=== PATIENT | male | born 1955 | race Caucasian/White ===

== ENCOUNTER → 2016-06-30 | Day surgery (SDC) | payer OTHER ==
[2016-06-23 14:48] VITALS: BMI 25.0
[~2016-06-30] VITALS: Ht 175.3 cm; Wt 78.2 kg
[~2016-06-30] MED LIST: ALBU18002 INH; ATOR-26 PO; CARV6.252 PO; ENOX80IN SQ; HYDR-5688 PO; LIDOCAINE HCL 2% 2 ML VIAL (20MG/ML) ONE; MIDAZOLAM HCL 1 MG/ML 2ML VIAL ONE; NITR0.4S UT; PRLSR20 PO; PROPOFOL IV EMULSION 10 MG/ML 20 ML VIAL IV ONE; SODIUM CHLORIDE 0.9% 500ML 500 ML IV ONE; TRAZ50TA35 PO; WARF-246 PO
[2016-06-30 08:35] VITALS: Ht 175.3 cm; Wt 78.2 kg
--- NOTE | 2016-06-30 09:13 | Endo History and Physical ---
History & Physical Date of Service: June 30, 2016. Chief Complaint: HISTORY OF POLYPS Referring Physician: CALI POSEY History of Present Illness h/o polyps Past Medical History Angioplasty/Stent, Arthritis, High Cholesterol, Hypertension, [place] Past Surgical History Hx Cardiac Surgery: Yes (HEART CATH-2 STENTS PLACED) Hx Internal Defibrillator: Yes ([facility] 2007/BATTERY REPLACED 2013) Hx Pacemaker: Yes ([facility] 2007/BATTER REPLACED 2013) Hx Abdominal Surgery: No Hx of Implantable Prosthesis: No Hx Post-Op Nausea and Vomiting: No Hx Cancer Surgery: No Hx Thoracic Surgery: Yes Hx Orthopedic: Yes (LT KNEE ARTHROSCOPY) Hx Urinary Tract Surgery: No Family History None Social History Smoking Status: Former Smoker Hx Substance Use: No Hx Alcohol Use: No Allergies Coded Allergies: No Known Allergies (Verified , 06/30/16) Current Medications Reported Home Medications Medications Dose Route/Sig Max Daily Dose Days Date Category Dose Instructions Lovenox (Enoxaparin Sodium) 80 Mg/0.8 Ml Inj 80 Mg SQ Q12H 06/30/16 Reported Lovenox (Enoxaparin Sodium) 80 Mg/0.8 Ml Inj 80 Mg SQ Q12H 06/30/16 Reported Proair Respiclick (Albuterol Sulfate) 108 Mcg/Act Aer 2 Puff INH Q4H PRN 06/23/16 Reported [place] 5MG/325MG (Acetaminophen/Hydrocodone Bitart) Tab 1 Tab PO BID PRN 30 06/23/16 Reported PRN PAIN Lipitor (Atorvastatin Calcium) 80 Mg Tab 80 Mg PO QAM 06/23/16 Reported Trazodone (Trazodone HCl) 50 Mg Tab 50 Mg PO HS 11/12/15 Reported Prilosec (Omeprazole) 20 Mg Capcr 20 Mg PO QAM 08/28/14 Reported Warfarin Sodium 5 Mg Tab 15 Mg PO UD 10/30/13 Reported 15MG WEDNESDAY AND WEDNESDAY. 10 MG ALL OTHER DAYS OR DIRECTED BY [facility] CL[facility]IC. Coreg (Carvedilol) 6.25 Mg Tab 6.25 Mg PO BID 10/30/13 Reported Nitrostat (Nitroglycerin) 0.4 Mg Sub 0.4 Mg UT PRN 03/27/11 Reported Vital Signs Weight (Kilograms): 78.18 Height (Feet): 5 Height (Inches): 9 Date Time Temp Pulse Resp B/P Pulse Ox O2 Delivery O2 Flow Rate FiO2 06/30/16 08:53 36.5 68 18 137/84 97 Room Air Physical Exam General Appearance: no apparent distress Respiratory/Chest: Auscultation: breath sounds normal Cardiovascular: Heart Auscultation: RRR Abdomen: Inspection & Palpation: soft Assessment and Plan ho polyps - colonoscopy
--- NOTE | 2016-06-30 09:56 | Discharge Instructions ---
Endoscopy Patient Instructions Date / Procedure(s) Performed June 30, 2016. Colonoscopy Allergy Information Coded Allergies: No Known Allergies (Verified , 06/30/16) Discharge Date / Findings June 30, 2016. Diverticulosis, hemorrhoids Medication Instructions Stopped Medication(s): BRIDGED WITH LOVENOX 80 STOPPED COUMADIN 5MG 06-25-16 Provider Instructions Activity Restrictions - No exercising or heavy lifting for 24 hours. - Do not drink alcohol the day of the procedure. - Do not drive a car or operate machinery until the day after the procedure. - Do not make any important decisions or sign important papers in 24 hours after the procedure. Following Day: - Return to full activity which may include returning to work/school. Diet Start your diet with liquids and light foods (jello, soup, juice, toast). Then eat your usual diet if not nauseated. Treatment For Common After Affects For mild abdominal pain, bloating, or excessive gas: - Rest - Eat lightly - Lie on right side Follow-Up Information Follow-up with CALI POSEY as scheduled Anesthesia Information What You Should Know You have had a procedure that required some medicine to reduce anxiety and discomfort. This treatment is called moderate sedation. After receiving the treatment, you may be sleepy, but you will be able to breathe on your own. The effects of the treatment may last for several hours. Follow these instructions along with Activity/Diet recommendations noted above: * Do NOT do anything where dizziness or clumsiness would be dangerous. * Rest quietly at home today, then you can be up and about tomorrow. * Have a responsible person stay with you the rest of today. * You may have had an I.V. today. If so, you may take the dressing off later today. Recommendations Call your doctor if: * Trouble breathing * Continuous vomiting for more than 24 hours * Temperature above 101 degrees * Severe abdominal pain or bloating * Pain not relieved by pain medicine ordered * There is increased drainage or redness from any incision * A large amount of rectal bleeding greater than 2-3 tablespoons. (If you had a polyp/s removed or have hemorrhoids, a small amount of blood - from the rectum is to be expected.) * You have any unanswered questions or concerns. IN THE EVENT OF A SERIOUS EMERGENCY, GO TO THE NEAREST EMERGENCY ROOM Your discharge instructions were prepared by provider Koffi Overton. Patient Instructions Signature Page Jason Mcdonald Patient (or Guardian) Signature/Date: I have read and understand the instructions given to me by my caregivers. Caregiver/RN/Doctor Signature/Date: The above-named patient and/or guardian has received patient instructions on this date. + Original Patient Signature Page (only) stays with chart. Please make copy for patient.
--- NOTE | 2016-06-30 10:04 | Anesthesiology Progress Note ---
Anesthesia Post Op Note Date & Time June 30, 2016 at 10:04 Vital Signs Pain Intensity: 0 Vital Signs Past 12 Hours Date Time Temp Pulse Resp B/P Pulse Ox O2 Delivery O2 Flow Rate FiO2 06/30/16 10:00 61 18 119/76 98 Room Air 06/30/16 09:43 71 14 105/72 97 Room Air 06/30/16 08:53 36.5 68 18 137/84 97 Room Air Notes Mental Status: alert / awake / arousable, participated in evaluation Pt Amnestic to Procedure: Yes Nausea / Vomiting: adequately controlled Pain: adequately controlled Airway Patency, RR, SpO2: stable & adequate BP & HR: stable & adequate Hydration State: stable & adequate Anesthetic Complications: no major complications apparent
[2016-06-30 10:15] VITALS: BP 125/79; PULSE 58; O2SAT 98
--- NOTE | 2016-06-30 10:36 | GI REPORT ---
Procedure Date: 06/30/2016 9:15 AM Procedure: Colonoscopy Indications: High risk colon cancer surveillance: Personal history of colonic polyps Medicines: See the Anesthesia note for documentation of the administered medications Complications: No immediate complications. Estimated Blood Loss: Estimated blood loss: none. Procedure: Pre-Anesthesia Assessment: - ASA Grade Assessment: IV - A patient with severe systemic disease that is a constant threat to life. After I obtained informed consent, the scope was passed under direct vision. Throughout the procedure, the patient's blood pressure, pulse, and oxygen saturations were monitored continuously. The scope was introduced through the anus and advanced to the terminal ileum. The colonoscopy was performed without difficulty. The patient tolerated the procedure well. The quality of the bowel preparation was good. Findings: The perianal and digital rectal examinations were normal. Multiple small and large-mouthed diverticula were found in the sigmoid colon and in the descending colon. Hemorrhoids were found during retroflexion. The exam was otherwise without abnormality. Impression: - Diverticulosis in the sigmoid colon and in the descending colon. - Hemorrhoids. - The examination was otherwise normal. - No specimens collected. Recommendation: - Discharge patient to home. - Repeat colonoscopy in 5 years for surveillance. Koffi Parks M.D. Koffi Parks MD 06/30/2016 9:55:40 AM This report has been signed electronically. Note Initiated On: 06/30/2016 9:15 AM I attest to the content of the Intraoperative Record and orders documented therein, exceptions below
== END | disposition home or self-care (01) ==
LOC: C.GI 08:33
PROVIDERS: ATTEND Internal Medicine Gastroenterology
DX: Z12.11 Encounter for screening for malignant neoplasm of colon (principal); Z86.010 Personal history of colon polyps; K57.30 Diverticulosis of large intestine without perforation or abscess without bleeding; K64.9 Unspecified hemorrhoids; I10 Essential (primary) hypertension; E78.00 Pure hypercholesterolemia, unspecified; I25.2 Old myocardial infarction; Z98.890 Other specified postprocedural states; I48.91 Unspecified atrial fibrillation; M19.90 Unspecified osteoarthritis, unspecified site; Z87.891 Personal history of nicotine dependence; Z95.0 Presence of cardiac pacemaker; Z68.25 Body mass index [BMI] 25.0-25.9, adult; Z79.899 Other long term (current) drug therapy; Z79.01 Long term (current) use of anticoagulants

== ENCOUNTER → 2017-03-09 | Outpatient (CLI) | payer OTHER ==
[~2017-03-09] MED LIST changes: -LIDOCAINE HCL 2% 2 ML VIAL (20MG/ML) ONE; -MIDAZOLAM HCL 1 MG/ML 2ML VIAL ONE; -PROPOFOL IV EMULSION 10 MG/ML 20 ML VIAL IV ONE; -SODIUM CHLORIDE 0.9% 500ML 500 ML IV ONE
[2017-03-09 13:57] LABS: BLOOD UREA NITROGEN 16 mg/dl (7-18); CREATININE 1.07 mg/dl (0.60-1.40)
== END | disposition home or self-care (01) ==
LOC: C.LABBC 11:21
PROVIDERS: ATTEND Orthopaedic Surgery Orthopaedic Surgery of the Spine
DX: M75.101 Unspecified rotator cuff tear or rupture of right shoulder, not specified as traumatic (principal)

== ENCOUNTER 2017-03-26 11:26 | Day surgery (SDC) | payer OTHER ==
[2017-03-24 14:31] VITALS: BMI 25.0
--- NOTE | 2017-03-24 15:06 | PAT Medication Instructions ---
Service Date Mar 24, 2017. Current Home Medication List Albuterol Sulfate (Proair Respiclick), 2 PUFF INH Q4H PRN for Shortness of Breath Carvedilol (Coreg), 6.25 MG PO BID Hydrocodone/Acetaminophen 5MG/325MG ([place] 5MG/325MG), 1 TAB PO BID PRN for Pain Hydroxyzine Pamoate (Vistaril), 1 CAP PO TID PRN for prn Nitroglycerin (Nitrostat), 0.4 MG UT PRN Omeprazole (Prilosec), 20 MG PO BID Medication Instructions For Your Scheduled Surgery - Take the following medications the morning of surgery with a sip of water: Omeprazole (Prilosec), 20 MG PO BID Nitroglycerin (Nitrostat), 0.4 MG UT PRN (if needed) Albuterol Sulfate (Proair Respiclick), 2 PUFF INH Q4H PRN for Shortness of Breath (if needed) Carvedilol (Coreg), 6.25 MG PO BID Hydrocodone/Acetaminophen 5MG/325MG ([place] 5MG/325MG), 1 TAB PO BID PRN for Pain (okay to take up to 4 hours prior to surgery if needed) Hydroxyzine Pamoate (Vistaril), 1 CAP PO TID PRN for prn (if needed) - Take the following medications as scheduled the night before surgery: Omeprazole (Prilosec), 20 MG PO BID Nitroglycerin (Nitrostat), 0.4 MG UT PRN (if needed) Albuterol Sulfate (Proair Respiclick), 2 PUFF INH Q4H PRN for Shortness of Breath (if needed) Carvedilol (Coreg), 6.25 MG PO BID Hydrocodone/Acetaminophen 5MG/325MG ([place] 5MG/325MG), 1 TAB PO BID PRN for Pain (if needed) Hydroxyzine Pamoate (Vistaril), 1 CAP PO TID PRN for prn (if needed) If you have any questions please call us at [phone] or [phone] or [phone]
--- NOTE | 2017-03-24 15:24 | DIAGNOSTIC IMAGING REPORT ---
CHEST 2 VIEWS ROUTINE CLINICAL HISTORY: 61 years-old Male presenting with preoperative assessment. TECHNIQUE: PA and lateral views of the chest were obtained. COMPARISON: 04/18/2014. FINDINGS: Left subclavian implanted cardiac defibrillator with lead to the right ventricular apex. Atherosclerosis of aortic arch. Cardiac silhouette normal in size. Opacity in the region of the left ventricular apex may represent a prominent pericardial fat pad. No other focal opacity. No pleural effusion or pneumothorax. Degenerative changes of the thoracic spine. Upper abdomen normal. IMPRESSION: 1. No acute cardiopulmonary disease. Electronically signed by: Sergio Tucker M.D. 03/24/2017 3:23 PM Dictated Date/Time: 03/24/2017 3:22 PM
[2017-03-24 16:29] LABS: BASO % 0.9 %; BASO ABS # 0.06 K/uL (0-0.2); EOS % 3.2 %; EOS ABS # 0.21 K/uL (0-0.5); HEMATOCRIT 36.6 % (42-52); HEMOGLOBIN 11.8 g/dL (14.0-18.0); IG# 0.02 K/uL (0.00-0.02); LYMPH % 36.7 %; LYMPH ABS # 2.44 K/uL (1.2-3.4); MEAN CELL VOLUME 73.8 fL (80-100); MEAN CORPUSCULAR HEMOGLOBIN 23.8 pg (25-34); MEAN CORPUSCULAR HGB CONC 32.2 g/dl (32-36); MEAN PLATELET VOLUME 10.1 fL (7.4-10.4); MONO % 10.5 %; NEUT % 48.4 %; NEUT ABS # 3.21 K/uL (1.4-6.5); PLATELET COUNT 259 K/uL (130-400); RED CELL DISTRIBUTION WIDTH CV 15.9 % (11.5-14.5); RED CELL DISTRIBUTION WIDTH SD 42.5 fL (36.4-46.3); WHITE BLOOD COUNT 6.64 K/uL (4.8-10.8)
[2017-03-24 16:36] LABS: CREATININE 1.16 mg/dl (0.60-1.40)
[2017-03-24 16:37] LABS: CALCIUM 8.9 mg/dl (8.5-10.1)
--- NOTE | 2017-03-25 07:10 | HISTORY & PHYSICAL EXAMINATION ---
DATE OF ADMISSION: 03/26/2017 HISTORY AND PHYSICAL ADMISSION NOTE CHIEF COMPLAINT: Right shoulder pain. HISTORY OF PRESENT ILLNESS: Jason is a pleasant 61-year-old male who has been having a year long history of right shoulder pain. He does not recall any traumatic event. He has been followed by my partner who has done physical therapy as well as giving him injections in his shoulder. Unfortunately, he is still having a lot of shoulder pain. Due to the pacemaker, he underwent a CT arthrogram of his right shoulder and the test showed a medially subluxated biceps tendon with some tearing of the upper border of the subscapularis. After failing extensive conservative treatment, he has elected to proceed with a shoulder arthroscopy. PAST MEDICAL HISTORY: Significant for myocardial infarction, heart valve issues, heart palpitations, pacemaker placement, angioplasty, and acid reflux. PAST SURGICAL HISTORY: Significant for heart pacemaker placement, surgery to his throat and surgery to his knee. ALLERGIES: None. MEDICATIONS: Include Coreg 6.25 mg twice a day, [place] 5/325 as needed for pain, Nitrostat 0.4 mg as needed, hydroxyzine 25 mg every 6 hours as needed, Prilosec 20 mg twice a day, and ProAir as needed. ALLERGIES: None. SOCIAL HISTORY: Denies any tobacco, alcohol or IV drug use. FAMILY HISTORY: Denies. REVIEW OF SYSTEMS: Complains of right shoulder pain. All other pertinent review of systems is negative. PHYSICAL EXAMINATION: GENERAL: He is awake, alert and oriented x3. He is in no apparent distress. He is very pleasant. HEENT: Pupils equal, round and reactive to light. Extraocular motion intact. Oral mucosa is pink and moist. HEART: Regular rate per radial pulse. LUNGS: [place] symmetrically bilaterally with no audible breath sounds. ABDOMEN: Soft, nontender, nondistended. MUSCULOSKELETAL: On physical examination of the right shoulder, he has good motion about 150 degrees of forward elevation and 50 degrees of abduction. He has 5/5 motion and full can testing and external rotation. Negative belly press test. A positive bear hug test. He has a lot of tenderness to palpation over the biceps geoffrey mechanism. IMAGING DATA: A CT arthrogram of the right shoulder does show some medial subluxation of the long head of the biceps tendon and a little bit of tearing of the upper border of the subscapularis. IMPRESSION: Medially subluxated biceps tendon. PLAN: Will proceed with a right shoulder arthroscopy to include biceps tenodesis and possible upper border subscap repair. Postoperatively, he will be given some oral pain medications and discharged to home.
[~2017-03-26] VITALS: Ht 182.9 cm; Wt 86.0 kg
--- NOTE | 2017-03-26 11:11 | History & Physical Bridge Note ---
H&P Re-Evaluation Bridge Note: I have examined the patient, reviewed the History & Physical and in the interval since the performance of the History & Physical I have noted the following changes of clinical significance: No changes noted
[~2017-03-26 11:26] MED LIST changes: -ATOR-26 PO; +BUPIVACAINE 0.5 % 5 MG/1 ML PF 10ML VIAL ONE; +CEFAZOLIN 2000MG IV PUSH 15 ML IV SCH; +CLONIDINE HCL 100 MCG/ML SYRINGE ONE; -ENOX80IN SQ; +HYDR25CA PO; +LACTATED RINGER'S 1000ML 1,000 ML IV SCH; +LACTATED RINGER'S 1000ML IV SCH; +MEPIVACAINE HCL 1.5% 30 ML VIAL ONE; -TRAZ50TA35 PO; -WARF-246 PO
[2017-03-26 11:54] VITALS: BP 123/85; PULSE 66; TEMP 36.3; O2SAT 97; Ht 182.9 cm; Wt 86.0 kg
[2017-03-26] MEDS ORDERED: EpINEphrine HCL INJ 1 MG/ML 1ML SYRINGE ONE (12:06)
[2017-03-26] MEDS ORDERED: BUPIVACAINE/EPINEPHRINE 0.5% MPF 1:200,000 30 ML VIAL ONE (12:06)
[2017-03-26] MEDS ORDERED: MIDAZOLAM HCL 1 MG/ML 2ML VIAL ONE ×2 (12:19)
[2017-03-26] MEDS ORDERED: FENTANYL CITRATE INJ 50 MCG/1 ML 2 ML VIAL ONE (12:19)
[2017-03-26] MEDS ORDERED: HYDROmorphone INJ 1 MG/ML SYR IV PRN (15:30)
[2017-03-26] MEDS ORDERED: EpHEDrine SULFATE INJ 50 MG/ML AMP IV PRN (15:30)
[2017-03-26] MEDS ORDERED: ONDANSETRON INJ 2 MG/ML 2 ML VIAL IV PRN ×2 (15:30→16:45)
[2017-03-26] MEDS ORDERED: PROMETHAZINE HCL INJ 12.5 MG in SODIUM CHLORIDE 0.9% 50ML 50 ML IV PRN (15:30)
[2017-03-26] MEDS ORDERED: NALOXONE HCL 0.4 MG/1 ML VIAL/CARP IV PRN (15:30)
[2017-03-26] MEDS ORDERED: FLUMAZENIL 0.1 MG/1 ML 10 ML VIAL IV PRN (15:30)
[2017-03-26] MEDS ORDERED: ATROPINE SULFATE 0.1 MG/ML 5ML SYR IV PRN (15:30)
[2017-03-26] MEDS ORDERED: ROCURONIUM BROMIDE 10 MG/ML 5 ML VIAL IV ONE (15:53)
[2017-03-26] MEDS ORDERED: GLYCOPYRROLATE INJ 0.2 MG/ML VIAL ONE (15:53)
[2017-03-26] MEDS ORDERED: PROPOFOL IV EMULSION 10 MG/ML 20 ML VIAL IV ONE (15:53)
[2017-03-26] MEDS ORDERED: NEOSTIGMINE METHYLSULFATE 5 MG/5 ML SYR ONE (15:53)
--- NOTE | 2017-03-26 16:24 | [facility] Post Operative Brief Note ---
Immediate Operative Summary Operative Date Mar 26, 2017. Pre-Operative Diagnosis External impingement, biceps tendonopathy Post-Operative Diagnosis External impingement, biceps tendonopathy Procedure(s) Performed Right shoulder arthroscopy, acromioplasty, distal clavical resection, biceps tenodesis Surgeon Dr. Cardenas Home Planning Consultant Salesperson Surgeon(s) Juan Reyes PA-C Estimated Blood Loss 5cc Findings Consistent with Post-Op Diagnosis Specimens none Anesthesia Type General Regional Complication(s) none Disposition Disposition: Recovery Room / PACU
[2017-03-26] MEDS ORDERED: OXYC-57 PO (16:38)
[2017-03-26] MEDS ORDERED: KETO10TA PO (16:38)
[2017-03-26] MEDS ORDERED: SODIUM CHLORIDE 0.9% 1000ML 1,000 ML IV SCH (16:40)
--- NOTE | 2017-03-26 16:40 | Discharge Instructions ---
Discharge Instructions Date of Service Mar 26, 2017. Admission Reason for Admission: Right Shoulder Small Rotator Cuff Tear Discharge Discharge Diagnosis / Problem: SAME ABOVE Discharge Goals Goal(s): Decrease discomfort, Improve function Activity Recommendations Activity Limitations: as noted below Lifting Limitations: until after follow-up appointment Exercise/Sports Limitations: until after follow-up appointment Shower/Bathe: tomorrow . Instructions / Follow-Up Instructions / Follow-Up MEDICATIONS: * Resume previous medications unless instructed otherwise by your surgeon. * Always take pain medication on a full stomach or with food to avoid upset stomach. * Do not drink alcohol or drive while taking narcotics. * Ibuprofen or Tylenol may be taken if narcotic not needed. SPECIAL CARE INSTRUCTIONS: __ None _X_ Keep extremity elevated and iced x 48 hours; apply ice 20-30 minutes 8-10 times/day. May remove at night. _X_ Sling (WEAR NEEDED FOR COMFORT) __24 hrs/day __ Remove at night __ Shoulder Immobilizer __ 24 hrs/day __ Remove at night _X_ Dressing __ Maintain until seen in office, may shower with plastic over site _X_ Remove dressings in 24-48 hours and then may shower _X_ Cover incisions with band-aids after showering _X_ Do not remove steri-strips (THEY MAY FALL OFF ON THEIR OWN IN THE ARM- PIT) Call physician if chills or temperature rises above 102 degrees or pain unrelieved by prescribed pain medications at . . Current Hospital Diet Patient's current hospital diet: Discharge Diet Recommended Diet: Regular Diet Procedures Procedures Performed: Right shoulder arthroscopy, acromioplasty, distal clavical resection, biceps tenodesis Pending Studies Studies pending at discharge: no Work Instructions Return To Work: after follow-up Lifting Limitations: NO LIFTING MORE THAN 5 POUNDS WITH RIGHT ARM Medical Emergencies . Who to Call and When: Medical Emergencies: If at any time you feel your situation is an emergency, please call 911 immediately. . Non-Emergent Contact Non-Emergency issues call your: Primary Care Provider Call Non-Emergent contact if: you have a fever, temperature is above 101.5 . "Provider Documentation" section prepared by Blas Reyes. . VTE Core Measure Inpt VTE Proph given/why not?: Treatment not indicated
[2017-03-26] MEDS ORDERED: OXYCODONE/ACETAMINOPHEN 5-325 TAB PO PRN ×2 (16:45)
[2017-03-26 17:25] VITALS: BP 145/84; PULSE 52; TEMP 36.4; O2SAT 98
[2017-03-26 17:55] VITALS: BP 144/83; PULSE 57; TEMP 36.5; O2SAT 99
--- NOTE | 2017-03-26 18:17 | Anesthesiology Progress Note ---
Anesthesia Post Op Note Date & Time Mar 26, 2017 at 18:17 Vital Signs Pain Intensity: 5 Vital Signs Past 12 Hours Date Time Temp Pulse Resp B/P (MAP) Pulse Ox O2 Delivery O2 Flow Rate FiO2 03/26/17 17:55 36.5 57 18 144/83 99 Room Air 03/26/17 17:25 36.4 52 18 145/84 98 Room Air 03/26/17 17:17 55 24 03/26/17 17:17 55 24 98 03/26/17 17:16 167/90 03/26/17 17:12 62 25 97 03/26/17 17:12 61 25 03/26/17 17:11 141/87 03/26/17 17:07 36.1 62 20 141/87 (100) 98 Room Air Oxymask 03/26/17 17:07 60 24 03/26/17 17:07 59 24 97 03/26/17 17:06 137/83 03/26/17 17:02 64 26 03/26/17 17:02 64 26 03/26/17 17:00 162/99 03/26/17 16:57 61 23 03/26/17 16:57 61 23 100 03/26/17 16:56 63 20 03/26/17 16:56 65 20 156/100 100 03/26/17 16:51 68 23 03/26/17 16:51 68 23 150/99 100 03/26/17 16:46 68 24 100 03/26/17 16:46 68 24 03/26/17 16:45 147/89 03/26/17 16:42 147/90 03/26/17 16:41 36.0 71 18 147/90 (103) 100 Oxymask 10 03/26/17 16:41 71 03/26/17 16:41 71 100 03/26/17 15:10 56 16 126/78 (94) 100 Oxymask 10 03/26/17 15:00 55 18 114/75 (88) 100 Oxymask 10 03/26/17 14:50 54 18 119/71 (87) 100 Oxymask 10 03/26/17 14:40 56 18 117/72 (87) 100 Oxymask 10 03/26/17 14:30 59 18 116/76 (89) 100 Oxymask 10 03/26/17 14:20 58 18 117/76 (90) 99 Oxymask 10 03/26/17 14:10 58 18 111/79 (90) 99 Oxymask 10 03/26/17 14:01 60 18 114/73 (87) 99 03/26/17 13:50 58 18 114/73 (87) 99 03/26/17 13:39 59 18 111/74 (86) 99 Oxymask 10 03/26/17 11:54 36.3 66 20 123/85 (98) 97 Room Air Notes Mental Status: alert / awake / arousable, participated in evaluation Pt Amnestic to Procedure: Yes Nausea / Vomiting: adequately controlled Pain: adequately controlled Airway Patency, RR, SpO2: stable & adequate BP & HR: stable & adequate Hydration State: stable & adequate Anesthetic Complications: no major complications apparent
--- NOTE | 2017-03-26 18:47 | OPERATIVE REPORT ---
DATE OF OPERATION: 03/26/2017 PREOPERATIVE DIAGNOSIS: Possibly medially subluxated biceps tendon with a small upper border subscapularis tear. POSTOPERATIVE DIAGNOSES: Biceps tendinopathy with labral fraying and external impingement and acromioclavicular joint arthritis. PROCEDURE: Right shoulder diagnostic arthroscopy with limited debridement, distal clavicle resection, acromioplasty and open subpectoral biceps tenodesis. SURGEON: Dr. Les Cardenas. BATCH WEIGHER: Juan Reyes PA-C, whose assistance was necessary for positioning the arm and helping with instrumentation. ANESTHESIA: General with a right interscalene nerve block. COMPLICATIONS: None. CONDITION: Stable to PACU. INDICATIONS: Jason is a pleasant 62-year-old male who has been having a 1-year history of right shoulder pain. CT arthrogram and clinical examination were diagnostic for possible upper border of the subscap tear and biceps geoffrey pain. After failing conservative treatment, he elected to undergo arthroscopy. DESCRIPTION OF PROCEDURE: On 03/26/2017, he arrived at [facility] for the above procedure. He was seen in the preoperative holding area and the operative extremity was identified and signed. He was given a preoperative antibiotic and a right interscalene nerve block. He was taken back to the operating room, laid on the table in supine position and put under general anesthesia. He was then put into the beachchair position and the right shoulder was prepped and draped in sterile fashion. Time-out was done and the patient and operative extremity was properly identified. A scope was introduced in the posterior portal. Diagnostic arthroscopy showed no cartilage damage to the humeral head or the glenoid. There was significant fraying of the superior and anterior inferior labrum. There was also a little bit of chondrocalcinosis. The fraying was incarcerated into the joint. There was a superior labral tear. The biceps tendon went through a slightly enlarged biceps geoffrey mechanism and there was redness on the dorsal aspect of the biceps tendon. The subscapularis was intact. The supraspinatus, infraspinatus, teres minor, and subscapularis were all checked and intact. An anterior portal was made. A shaver was used to do a limited debridement of the intraarticular structures and the biceps tendon was arthroscopically tenotomized. The scope was then put into the subacromial space. A lateral portal was made. A shaver was used to do a complete subacromial and subdeltoid bursectomy. An ablator was used to tease the coracoacromial ligament off the undersurface of the acromion and a 5-0 maribell was used to complete an acromioplasty of a Bigliani type 3 acromion. A shaver was used to remove any excess debris and the bursal side of the rotator cuff was examined extensively without evidence of tear. Attention was then paid to the distal clavicle. I removed the meniscal tissue from the distal clavicle. There was significant arthritis. I decided to do a distal clavicle resection. Through an anterior portal, a shaver and ablator were used to skeletonize the distal clavicle, a 5-0 maribell was then used to resect the distal 5 mm from the clavicle. Complete resection was checked under direct visualization. Arthroscopic instruments were removed from the shoulder and attention was turned to an open biceps tenodesis. A small incision was made over the inferior border of the pec major. Dissection was taken down through the fascia and the long head of the biceps tendon was delivered out of the wound. The tendon was then whipstitched at the anticipated level of tenodesis and the remainder of the tendon was discarded. A 6 mm hole was drilled in the bicipital groove and the biceps tendon was tenodesed with an Arthrex biceps button that was passed through the posterior cortex in a tension slide technique to deliver the tendon into the 6 mm hole. This gave good fixation. The wound was then irrigated and closed with 3-0 Vicryl and running 3-0 Monocryl. Steri-strips were placed. Portal sites were closed with 3-0 nylon. He was then placed in a soft dressing and a regular arm sling. He was then extubated, transferred to a [facility] and taken to the postanesthesia care unit in stable condition. He tolerated the procedure well. I attest to the content of the Intraoperative Record and any orders documented therein. Any exception s are noted below.
== END 2017-03-26 17:55 | disposition home or self-care (01) ==
LOC: C.ACU 11:26
PROVIDERS: ATTEND Orthopaedic Surgery
DX: M75.21 Bicipital tendinitis, right shoulder (principal); M75.41 Impingement syndrome of right shoulder; M19.011 Primary osteoarthritis, right shoulder; I10 Essential (primary) hypertension; I25.2 Old myocardial infarction; Z95.0 Presence of cardiac pacemaker; Z98.890 Other specified postprocedural states; I25.10 Atherosclerotic heart disease of native coronary artery without angina pectoris; Z79.82 Long term (current) use of aspirin

== ENCOUNTER 2022-11-08 07:00 | Observation (INO) ==
--- NOTE | 2022-11-08 07:20 | Emergency Department Note ---
Impression & Plan Ventricular tachycardia, Diaphoresis ED Provider Note NAME: JANE RUIZ AGE: 67 SEX: M : 1955 ARRIVES VIA: Walk-In INFORMANT: Patient ED PROVIDER(S): Jose Alberto Salmeron DO CHIEF COMPLAINT: Sweaty and ICD shock HPI: Patient is a 67-year-old male with a past medical history of an MN, ICD placement, previous shock, ischemic cardiomyopathy who presents to the ER following waking up this morning and feeling very sweaty and lightheaded. Shortly after this he felt like he was shocked. He currently denies any chest pain or shortness of breath. No belly pain. No nausea, vomiting, or diarrhea. He notes the swelling has stopped. No dysuria, urgency, or frequency. No other exacerbating or remitting factors. ADDITIONAL HISTORY OBTAINED: Per HPI Chronic Medical/Social Conditions Affecting Care: Per HPI PAST MEDICAL HISTORY:See Below PAST SURGICAL HISTORY:See Below FAMILY HISTORY:See Below SOCIAL HISTORY:See Below HOME MEDICATIONS:See Below ALLERGIES:See Below VITALS:See Below PHYSICAL EXAMINATION: GENERAL: Sitting up in bed, alert, well appearing, well nourished, no distress, non-toxic EYE EXAM: normal conjunctiva. OROPHARYNX:mucous membranes are moist LUNGS: Clear to auscultation. Normal chest wall mechanics HEART: no murmurs, S1 normal and S2 normal ABDOMEN: abdomen soft, non-tender, normo-active bowel sounds, no masses, no re bound or guarding. BACK: Back is symmetrical on inspection and there is no deformity, no midline te nderness, no CVA tenderness. SKIN: no rashes and no bruising UPPER EXTREMITIES: upper extremities are grossly normal. LOWER EXTREMITIES: No pitting edema. NEURO EXAM: Normal sensorium, cranial nerves II-XII grossly intact, normal speech, no gross weakness of arms, no gross weakness of legs. MEDICAL DECISION MAKING: Patient is a 67-year-old male who presents ER for above-stated complaint. IV was established blood work was obtained. External records reviewed. Labs show no significant leukocytosis or anemia. BMP with a slightly elevated chloride. LFTs bilirubin and lipase is unremarkable. Troponin was negative. Chest x-ray was clean. ICD was interrogated and showed V. tach which was initially paced which was unsuccessful and eventually was shocked at 25 J today at 6 in the morning. Discussed the case with the patient as well as Dr. Bolaños the patient was admitted to the [facility] for further evaluation management treatment. External Records Reviewed: External records reviewed with osteoarthritis of the knees per Ortho Consults/Care Managements Discussions: Per [facility] Triage Nursing notes reviewed. Limited review of prior medical records performed Vital Signs: reviewed and remarkable for no significant abnormalities Differential diagnosis: Cardiac ischemia, aortic dissection, pulmonary embolism, pneumothorax, pneumoni a, pericarditis, myocarditis, esophageal rupture, GERD, cholecystitis, pancreatitis, musculoskeletal, as well as other pathologies. ER treatment provided: See below Diagnostics interpreted by me include EKG and cardiac monitoring as listed below: -Cardiac Monitoring: An order was placed for continuous cardiac monitoring. The monitor shows a rate of 90 with sinus rhythm. -ECG: Sinus rhythm rate of 93 PVCs QTc 455 T wave inversions in the inferior leads -Laboratory studies:Interpreted by me as stated above in MDM and shown below. Imaging studies: Xrays: As interpreted by me: Portable AP upright 1 view of the chest shows no focal infiltrate CTs show: none Procedures:none Critical Care: None Past Med/Surg History Medical History Acute cerebrovascular accident (CVA) Anemia Arteriosclerotic cardiovascular disease Atrial fibrillation COVID-19 Exertional shortness of breath GERD (gastroesophageal reflux disease) Hyperlipidemia Hypertension ICD (implantable cardioverter-defibrillator) in place Ischemic cardiomyopathy Myocardial Infarction Stroke Thrombus in heart chamber Surgical History H/O hemorrhoidectomy History of cardiac cath History of colonoscopy History of esophagogastroduodenoscopy (EGD) History of heart artery stent History of repair of rotator cuff History of tonsillectomy History of tooth extraction Family History Father Family history of diabetes mellitus Myocardial infarction Mother Myocardial infarction Brother Myocardial infarction Denies family history of Ovarian cancer Prostate cancer Breast cancer Colorectal cancer Social History Smoking Status: Former smoker Tobacco Type: Cigarettes and Smokeless Tobacco (Dip or Chew) Age Started Using Tobacco: 18; Age Quit Using Tobacco: 47; packs per day: 1; Second Hand Exposure: No; Do You Dip or Chew Tobacco: Yes; Hx Alcohol Use: No Hx Substance Use: No Preferred Language: Belgian Communication Ability: Effective Visual Impairment: No Limitations Hearing Ability: Normal Courtesy Driver Required: No Beliefs That Will Affect Care: None marital status: Single Current Living Situation: Alone current occupational status: retired current occupation: used to work in construction Feels Safe at Home: Yes Childhood Exposure to Second-Hand Smoke: Yes Diet: regular Dental Care, Regularly: No Physical Activity Frequency: Daily Seatbelt Use: always Sunscreen Use: Yes Assistive Devices: Cane and Glasses Allergies Allergies Allergy/AdvReac Type Severity Reaction Status Date / Time cefdinir AdvReac Severe Vomiting Verified 09/17/22 13:38 Home Meds Home Medications Medication Instructions Recorded Confirmed atorvastatin 80 mg tablet 80 mg PO DAILY 05/21/21 11/08/22 clopidogrel 75 mg tablet 75 mg PO DAILY 05/21/21 11/08/22 Previous Rx's Medication Instructions Recorded sennosides 8.6 mg tablet (Senokot) 8.6 mg PO HS #30 tabs 08/09/19 ondansetron 4 mg disintegrating 8 mg PO Q8H PRN nausea and 06/03/20 tablet vomiting #40 tabs nitroglycerin 0.4 mg sublingual See Rx Instructions .Route 01/22/21 tablet .COMPLEX #75 tabs diclofenac sodium 1 % topical gel 2 g topical QID PRN pain, moderate 06/04/21 #100 grams isosorbide mononitrate 30 mg 30 mg PO DAILY #90 tabs 06/05/21 tablet,extended release 24 hr albuterol sulfate 90 mcg/actuation 2 puff inhalation 6XD PRN Wheezing 11/11/21 aerosol inhaler (ProAir HFA) #6.7 grams apixaban 5 mg tablet (Eliquis) 5 mg PO BID #180 tabs 11/11/21 omeprazole 20 mg capsule,delayed 20 mg PO BID #180 caps 05/13/22 release carvedilol 25 mg tablet 25 mg PO BID #180 tabs 07/29/22 hydrocodone 5 mg-acetaminophen 325 1 - 1.5 tab PO Q6H PRN pain #90 10/30/22 mg tablet tabs Results & Data (ED) Vital Signs Vital Signs - 24 hr 11/08/22 07:02 11/08/22 08:17 11/08/22 08:36 Temperature 36.3 C L Temperature Source Temporal Artery Scan Pulse Rate 93 H 88 Pulse Rate [Apical] 65 Respiratory Rate 18 18 Respiratory Effort / Characteristics Non-Labored Respiratory Depth Normal Respiratory Pattern Regular Blood Pressure 151/101 H Blood Pressure [Left Arm] 142/101 H Blood Pressure Mean 117 Blood Pressure Mean [Left Arm] 114 Blood Pressure Position [Left Arm] Pulse Oximetry 96 97 Oxygen Delivery Method Room Air Room Air Sepsis Recent Fever Within 48 Hours No Sepsis New/Unexplained Change in Mental Status N/A Sepsis Action Taken by Nursing No Action Required 11/08/22 10:00 11/08/22 11:00 11/08/22 12:17 Temperature Temperature Source Pulse Rate 75 83 Pulse Rate [Apical] 79 Respiratory Rate 18 22 Respiratory Effort / Characteristics Respiratory Depth Respiratory Pattern Blood Pressure Blood Pressure [Left Arm] 137/96 Blood Pressure Mean Blood Pressure Mean [Left Arm] 109 Blood Pressure Position [Left Arm] Pulse Oximetry 97 97 Oxygen Delivery Method Room Air Room Air Sepsis Recent Fever Within 48 Hours Sepsis New/Unexplained Change in Mental Status Sepsis Action Taken by Nursing 11/08/22 12:00 Temperature Temperature Source Pulse Rate Pulse Rate [Apical] 76 Respiratory Rate 22 Respiratory Effort / Characteristics Respiratory Depth Respiratory Pattern Blood Pressure Blood Pressure [Left Arm] 159/96 H Blood Pressure Mean Blood Pressure Mean [Left Arm] 117 Blood Pressure Position [Left Arm] Sitting Pulse Oximetry 97 Oxygen Delivery Method Room Air Sepsis Recent Fever Within 48 Hours Sepsis New/Unexplained Change in Mental Status Sepsis Action Taken by Nursing Laboratory Data 11/08/22 07:35 11/08/22 07:35 Lab Results 11/08/22 11/08/22 11/08/22 Range/Units 07:35 07:35 09:36 WBC 6.69 (4.8-10.8) K/ul RBC 5.52 (4.70-6.10) M/uL Hgb 14.9 (14.0-18.0) g/dl Hct 44.1 (42.0-52.0) % MCV 79.9 L (80.0-100.0) fL MCH 27.0 (25.0-34.0) pg MCHC 33.8 (32.0-36.0) g/dL RDW Std Deviation 44.7 (36.4-46.3) fL RDW Coeff of Em 15.5 H (11.5-14.5) % Plt Count 241 (130-400) K/uL MPV 10.0 (9.4-12.4) fL Immature Gran % (Auto) 0.6 % Neut % (Auto) 47.1 % Lymph % (Auto) 37.1 % [place] % (Auto) 11.2 % Eos % (Auto) 3.0 % Baso % (Auto) 1.0 % Neut # (Auto) 3.15 (1.40-6.50) K/uL Lymph # (Auto) 2.48 (1.20-3.40) K/uL [place] # (Auto) 0.75 H (0.11-0.59) K/uL Eos # (Auto) 0.20 (0.00-0.50) K/uL Baso # (Auto) 0.07 (0.00-0.20) K/uL Immature Gran # (Auto) 0.04 (0.01-0.20) K/uL Sodium 142 (136-145) mmol/L Potassium 3.6 (3.5-5.1) mmol/L Chloride 108 H (98-107) mmol/L Carbon Dioxide 27 (21-32) mmol/L Anion Gap 7 (3-11) BUN 11 (6-23) mg/dl Creatinine 1.04 (0.6-1.4) mg/dl Est Cr Clr Drug Dosing 68.0 ml/min Est GFR ( Amer) 85.1 ml/min Est GFR (Non-Af Amer) 73.4 ml/min BUN/Creatinine Ratio 10.6 (10-20) Glucose 99 (70-99(Fasting)) mg/dl Calcium 8.9 (8.6-10.3) mg/dl Total Bilirubin 0.4 (0.2-1.0) mg/dl AST 14 (13-39) U/L ALT 12 (7-52) U/L Alkaline Phosphatase 58 (34-104) U/L Troponin I High Sens 13.1 19.8 D (0-20) pg/ml Total Protein 7.0 (6.0-8.3) gm/dl Albumin 4.1 (3.4-5.0) gm/dl Globulin 2.9 (2.5-4.0) gm/dl Albumin/Globulin Ratio 1.4 (0.9-2) Lipase 46 (11-82) U/L Imaging Data Radiologist's Impression: Chest X-Ray 11/08/22 07:10 XR chest 1V portable CLINICAL HISTORY: Chest pain, nonspecific COMPARISON STUDY: Chest radiograph May 25, 2020. FINDINGS: Left subclavian pacer/AICD remains in place. There is no pneumothorax or pleural effusion. Blunting of the left costophrenic angle is likely due to epicardial fat pad. Cardiomediastinal silhouette is stable. There is no evidence for pulmonary edema. No consolidation to suggest pneumonia. IMPRESSION: No acute cardiopulmonary findings. No significant change in appearance of the chest. ACT 112: Negative or not required by law. Electronically signed by: Jose Alberto Agrawal M.D. 11/08/2022 7:29 AM Discharge Plan Visit Data Chief Complaint: Cardiac Assessment Stated Complaint: PACE MAKER SHOCKED HIM ED Provider: Jose Alberto Salmeron Discharge Problem: Ventricular tachycardia, Diaphoresis Forms Stand Alone Forms: [facility] Prescriptions Prescriptions: No Action ondansetron 4 mg tablet,disintegrating 8 mg PO Q8H PRN (Reason: nausea and vomiting) Qty: 40 0RF nitroglycerin 0.4 mg tablet, sublingual See Rx Instructions .ROUTE .COMPLEX Qty: 75 1RF Dose Instruction: PLACE 1 TABLET UNDER TONGUE EVERY 5 MINS, UP TO 3 DOSES NEEDED FOR CHEST PAIN Rx Instructions: PLACE 1 TABLET UNDER TONGUE EVERY 5 MINS, UP TO 3 DOSES NEEDED FOR CHEST PAIN carvedilol 25 mg tablet 25 mg PO BID Qty: 180 3RF hydrocodone-acetaminophen 5-325 mg tablet 1 - 1.5 tab PO Q6H PRN (Reason: pain) Qty: 90 0RF isosorbide mononitrate 30 mg tablet extended release 24 hr 30 mg PO DAILY Qty: 90 3RF omeprazole 20 mg capsule,delayed release(DR/EC) 20 mg PO BID Qty: 180 3RF diclofenac sodium 1 % gel 2 g topical QID PRN (Reason: pain, moderate) Qty: 100 2RF albuterol sulfate [ProAir HFA] 90 mcg/actuation HFA aerosol inhaler 2 puff INHALATION 6XD PRN (Reason: Wheezing) Qty: 6.7 5RF Eliquis 5 mg tablet 5 mg PO BID Qty: 180 3RF sennosides [Senokot] 8.6 mg tablet 8.6 mg PO HS Qty: 30 0RF atorvastatin 80 mg Tablet 80 mg PO DAILY clopidogrel 75 mg Tablet 75 mg PO DAILY Referrals Referrals: Clarice Dorsey MD [Primary Care Provider] -
--- NOTE | 2022-11-08 07:30 | XRay Report ---
XR chest 1V portable CLINICAL HISTORY: Chest pain, nonspecific COMPARISON STUDY: Chest radiograph May 25, 2020. FINDINGS: Left subclavian pacer/AICD remains in place. There is no pneumothorax or pleural effusion. Blunting of the left costophrenic angle is likely due to epicardial fat pad. Cardiomediastinal silhou ette is stable. There is no evidence for pulmonary edema. No consolidation to suggest pneumonia. IMPRESSION: No acute cardiopulmonary findings. No significant change in appearance of the chest. ACT 112: Negative or not required by law. Electronically signed by: Jose Alberto Agrawal M.D. 11/08/2022 7:29 AM
[2022-11-08 07:55] LABS: Basophils # (auto) 0.07 K/uL (0.00-0.20); Hematocrit (blood only) 44.1 % (42.0-52.0); Hemoglobin 14.9 g/dl (14.0-18.0); Immature Granulocytes # (auto) 0.04 K/uL (0.01-0.20); Immature Granulocytes % (auto) 0.6 %; Lymphocytes # (auto) 2.48 K/uL (1.20-3.40); Lymphocytes % (auto) 37.1 %; Mean Corpuscular Hgb Conc 33.8 g/dL (32.0-36.0); Mean Corpuscular Volume 79.9 fL (80.0-100.0); Monocytes # (auto) 0.75 K/uL (0.11-0.59); Monocytes % (auto) 11.2 %; Neutrophils # (auto) 3.15 K/uL (1.40-6.50); Neutrophils % (auto) 47.1 %; Platelet Count 241 K/uL (130-400); RDW Coefficient of Variation 15.5 % (11.5-14.5); RDW Standard Deviation 44.7 fL (36.4-46.3); Red Blood Count 5.52 M/uL (4.70-6.10); White Blood Count 6.69 K/ul (4.8-10.8)
[2022-11-08 08:08] LABS: Albumin Globulin Ratio 1.4 (0.9-2); Albumin Level 4.1 gm/dl (3.4-5.0); BUN Creatinine Ratio 10.6 (10-20); Bilirubin,Total 0.4 mg/dl (0.2-1.0); Calcium 8.9 mg/dl (8.6-10.3); Est GFR (African American) 85.1 ml/min; Est GFR (Non-African American) 73.4 ml/min; Globulin 2.9 gm/dl (2.5-4.0); Potassium 3.6 mmol/L (3.5-5.1)
[2022-11-08 08:33] LABS: Troponin I High Sensitivity 13.1 pg/ml (0-20)
--- NOTE | 2022-11-08 09:44 | Electrocardiogram Report ---
Test Reason : Blood Pressure : / mmHG Vent. Rate : 093 BPM Atrial Rate : 093 BPM P-R Int : 186 ms QRS Dur : 098 ms QT Int : 366 ms P-R-T Axes : 049 -37 040 degrees QTc Int : 455 ms Sinus rhythm with occasional Premature ventricular complexes Left axis deviation Incomplete right bundle branch block Left ventricular hypertrophy with repolarization abnormality Old Anteroseptal infarct (cited on or before 27-MAR-2011) Abnormal ECG When compared with ECG of 25-MAY-2020 11:59, Premature ventricular complexes are now Present Confirmed by Lavon Covington ([id number]) on 11/08/2022 9:44:33 AM Referred By: REFERRED SELF Confirmed By:Lavon Covington
--- NOTE | 2022-11-08 13:09 | XCELERA ---
[id number]
[2022-11-08] MEDS ORDERED: HYDROCODONE/ACETAMOPHEN 5/325MG TAB PO PRN (14:39)
[2022-11-08] MEDS ORDERED: ONDANSETRON INJ 2 MG/ML 2 ML VIAL IV PRN (14:39)
[2022-11-08] MEDS ORDERED: MAGNESIUM HYDROXIDE SUSP 30 ML UDC PO PRN (14:39)
[2022-11-08] MEDS ORDERED: ALBUTEROL HFA 8 GM INHALER INH PRN (14:39)
[2022-11-08] MEDS ORDERED: ONDANSETRON 8MG OD TAB PO PRN (14:39)
[2022-11-08] MEDS ORDERED: DICLOFENAC SOD 1% GEL 100 GM TUBE EXT PRN (14:39)
[2022-11-08] MEDS ORDERED: POLYETHYLENE (MIRALAX) 17 GM PACK PO PRN (14:39)
[2022-11-08] MEDS ORDERED: ACETAMINOPHEN 325 MG TAB PO PRN (14:39)
[2022-11-08] MEDS ORDERED: NITROGLYCERIN SL 0.4 MG/TAB TAB SL PRN (14:39)
[2022-11-08] MEDS ORDERED: ALUMINUM/MAGNESIUM SUSP 30 ML UDC PO PRN (14:39)
--- NOTE | 2022-11-08 15:29 | Cardiology Consultation ---
Date of Consultation November 08, 2022 Assessment & Plan (1) Ventricular tachycardia: (2) Ischemic cardiomyopathy: (3) H/O acute myocardial infarction of anterior wall: Plan 67-year-old man with ischemic cardiomyopathy and implantable defibrillator who experienced a shock earlier today without significant prodrome or sequelae. Echocardiogram did show a mild decline in LV systolic function, but no no wall motion abnormalities and initial troponins are negative, weighing against this being an ischemic event. Also, his recent level of physical activity has been high and symptom-free and he feels well currently post shock. Since he did have ventricular tachycardia July 2022 as well (treated with antitachycardia pacing) and his systolic function seems to be declining, will initiate antiarrhythmic therapy with amiodarone 200 mg 3 times daily (loading dose, can be tapered to twice daily in 2 weeks). Perhaps the amiodarone will have an added benefit of maintaining sinus rhythm. His BP is variable but at times hypertensive, would recommend discontinuing carvedilol for now and initiating Entresto. If BP remains elevated, could gradually add carvedilol back later as needed. Since he is on high-dose proton pump inhibitor and this could impair magnesium absorption long-term, would check magnesium level. If this is markedly diminished, could add magnesium supplement and may not need amiodarone longer- term. Patient follows with Dr. Bryson routinely, please arrange cardiology follow-up with him upon discharge. History of Present Illness Reason for Consultation: vtach, ICD firing Requesting Physician: Jose Alberto Salcido DO Attending Physician: Jose Alberto Salcido DO History of Present Illness 67-year-old man withhypertension, paroxysmal atrial fibrillation (apixaban/c arvedilol), ischemic cardiomyopathy (EF varying between 25% and 35%), coronary artery disease (AMI, LAD stents x2, May 2006; 50% in stent stenosis 2021), single-chamber ICD ([facility], 2006, 2013) who is admitted today (11/08/2022) after his defibrillator fired. He has had prior defibrillator discharges which occurred early after ICD implantation in 2006, but had not had any for many years. Of note, a telemetry remote report from 08/04/2022 notes that he had ventricular tachycardia which required antitachycardia pacing, he does not recall any specific symptoms around this time. Today, he awoke with diaphoresis but no chest pain or dyspnea, he reclined for short while and then got up to get a coffee, as he was turning on the tap water he was abruptly shocked by his device. At recent baseline, he has felt well and has been able to bicycle many miles and do moderate physical labor without chest pain, dyspnea, palpitations or any other complaints. Aside from his diaphoresis, he had no prodromal symptoms and he has had no chest pain, dyspnea, or other complaints since his ICD shock. At the time of my evaluation, he was comfortable and had no somatic complaints. Allergies Allergy/AdvReac Type Severity Reaction Status Date / Time cefdinir AdvReac Severe Vomiting Verified 09/17/22 13:38 Home Medications Medication Instructions Recorded Confirmed Type sennosides 8.6 mg tablet (Senokot) 8.6 mg PO HS #30 tabs 08/09/19 11/08/22 Rx ondansetron 4 mg disintegrating 8 mg PO Q8H PRN nausea and 06/03/20 11/08/22 Rx tablet vomiting #40 tabs nitroglycerin 0.4 mg sublingual See Rx Instructions .Route 01/22/21 11/08/22 Rx tablet .COMPLEX #75 tabs atorvastatin 80 mg tablet 80 mg PO DAILY 05/21/21 11/08/22 History clopidogrel 75 mg tablet 75 mg PO DAILY 05/21/21 11/08/22 History diclofenac sodium 1 % topical gel 2 g topical QID PRN pain, moderate 06/04/21 11/08/22 Rx #100 grams isosorbide mononitrate 30 mg 30 mg PO DAILY #90 tabs 06/05/21 11/08/22 Rx tablet,extended release 24 hr albuterol sulfate 90 mcg/actuation 2 puff inhalation 6XD PRN Wheezing 11/11/21 11/08/22 Rx aerosol inhaler (ProAir HFA) #6.7 grams apixaban 5 mg tablet (Eliquis) 5 mg PO BID #180 tabs 11/11/21 11/08/22 Rx omeprazole 20 mg capsule,delayed 20 mg PO BID #180 caps 05/13/22 11/08/22 Rx release carvedilol 25 mg tablet 25 mg PO BID #180 tabs 07/29/22 11/08/22 Rx hydrocodone 5 mg-acetaminophen 325 1 - 1.5 tab PO Q6H PRN pain #90 10/30/22 11/08/22 Rx mg tablet tabs Patient History Medical History Acute cerebrovascular accident (CVA) Anemia Arteriosclerotic cardiovascular disease Atrial fibrillation COVID-19 Exertional shortness of breath GERD (gastroesophageal reflux disease) Hyperlipidemia Hypertension ICD (implantable cardioverter-defibrillator) in place ORIGINAL IMPLANTED 2006 ([facility]); new one placed 2013--GETS CHECKED BY DR. HUA *Most recent check was July 2019 Ischemic cardiomyopathy S/P [facility] ICD. Myocardial Infarction 2006 Stroke Subacute infarct of posterior R frontal lobe on imaging 11/2017. Residual numbness in LUE. Thrombus in heart chamber Resolved LV thrombus Surgical History H/O hemorrhoidectomy Anal Exam Under Anesthesia, Mixed internal and external [address] Espinosa 09/13/2019 History of cardiac cath 2006--2 stents [facility] History of colonoscopy 2018 History of esophagogastroduodenoscopy (EGD) History of heart artery stent 2 STENTS PLACED 2006, unsure if drug eluding History of repair of rotator cuff RT History of tonsillectomy History of tooth extraction all bottom removed Family History Father Family history of diabetes mellitus Myocardial infarction Mother Myocardial infarction Brother Myocardial infarction Denies family history of Ovarian cancer Prostate cancer Breast cancer Colorectal cancer Social History Smoking Status: Former smoker Tobacco Type: Cigarettes and Smokeless Tobacco (Dip or Chew) Age Started Using Tobacco: 18; Age Quit Using Tobacco: 47; packs per day: 1; Second Hand Exposure: No; Do You Dip or Chew Tobacco: Yes; Hx Alcohol Use: No Hx Substance Use: No Preferred Language: Spanish Communication Ability: Effective Visual Impairment: No Limitations Hearing Ability: Normal Urologist Required: No Beliefs That Will Affect Care: None marital status: Single Current Living Situation: Alone current occupational status: retired current occupation: used to work in construction Feels Safe at Home: Yes Safety Concerns: Feels Safe At This Time Childhood Exposure to Second-Hand Smoke: Yes Diet: regular Dental Care, Regularly: No Physical Activity Frequency: Daily Seatbelt Use: always Sunscreen Use: Yes Assistive Devices: Cane, Denture - Lower and Glasses Physical Exam Physical Exam: No distress. BP mildly hypertensive. Pulse 80 bpm and irregular. Skin: no ecchymoses or generalized lesions. HEENT: unremarkable. Neck: JVP at the clavicle at 90 degrees, no carotid bruits. Lungs: clear. Cardiac: irregular rhythm, normal S1-2, 2/6 apical holosystolic murmur rating to the axilla, no diastolic murmur. Abdomen: benign. Extremities: no edema, pulses intact. Neurologic: normal affect and conversation, nonfocal. Results & Data Laboratory Results Potassium 3.6, BUN 11, creatinine 1.04. Troponins of 13 and 19.8. Diagnostic Findings ECG on admission showed sinus rhythm with occasional PVCs, incomplete right bundle branch block, left ventricular hypertrophy with repolarization abnormalities, old anteroseptal infarct. Compared with May 2020 ECG, PVCs now present, otherwise no significant change. Chest x-ray on admission showed no acute abnormalities. Echocardiogram currently showed EF 25 to 30% with extensive wall motion abnormalities (large anteroapical infarct with varying degrees of hypokinesis elsewhere), moderate mitral regurgitation, mild to moderate tricuspid regurgitation with normal RVSP. Compared with 2021 study, there has been a decline in left ventricular systolic function and an increase in valvular regurgitation but no new wall motion abnormalities. PG Care Time/CCT Total # of Minutes Spent Total Time Spent with Patient: Total time spent is greater than 50% in coordination of care (as documented) at patient's floor/unit and/or counseling patient: Coding Level of Care Code 24437 INT INP/OBS CARE 3/75MIN Diagnoses Ventricular tachycardia I47.20 Ischemic cardiomyopathy I25.5 H/O acute myocardial infarction of anterior wall I25.2
[2022-11-08 15:49] LABS: Magnesium 1.9 mg/dl (1.7-2.4)
[2022-11-08 16:02] LABS: Troponin I High Sensitivity 17.8 pg/ml (0-20)
[2022-11-08] MEDS: AMIODARONE 200 MG TAB PO SCH (16:27)
--- NOTE | 2022-11-08 18:12 | History & Physical Report ---
Date of Service November 08, 2022 Assessment & Plan (1) Ventricular tachycardia: Plan: Change carvedilol to amiodarone, add Entresto for his ischemic cardiomyopathy, follow. Check magnesium and replace if low. Appreciate cardiology input. Anticoagulated with Eliquiswhich will suffice for DVT prophylaxis. Admission and Anticipated Discharge Date Admission Date: November 08, 2022 History of Present Illness Chief Complaint: ICD firing Primary Care Provider: Clarice Dorsey MD ICD fired, found to be in vtach. feeling better now. cardiology consulted - input appreciated. Allergies Allergy/AdvReac Type Severity Reaction Status Date / Time cefdinir AdvReac Severe Vomiting Verified 09/17/22 13:38 Home Medications Medication Instructions Recorded Confirmed Type sennosides 8.6 mg tablet (Senokot) 8.6 mg PO HS #30 tabs 08/09/19 11/08/22 Rx ondansetron 4 mg disintegrating 8 mg PO Q8H PRN nausea and 06/03/20 11/08/22 Rx tablet vomiting #40 tabs nitroglycerin 0.4 mg sublingual See Rx Instructions .Route 01/22/21 11/08/22 Rx tablet .COMPLEX #75 tabs atorvastatin 80 mg tablet 80 mg PO DAILY 05/21/21 11/08/22 History clopidogrel 75 mg tablet 75 mg PO DAILY 05/21/21 11/08/22 History diclofenac sodium 1 % topical gel 2 g topical QID PRN pain, moderate 06/04/21 11/08/22 Rx #100 grams isosorbide mononitrate 30 mg 30 mg PO DAILY #90 tabs 06/05/21 11/08/22 Rx tablet,extended release 24 hr albuterol sulfate 90 mcg/actuation 2 puff inhalation 6XD PRN Wheezing 11/11/21 11/08/22 Rx aerosol inhaler (ProAir HFA) #6.7 grams apixaban 5 mg tablet (Eliquis) 5 mg PO BID #180 tabs 11/11/21 11/08/22 Rx omeprazole 20 mg capsule,delayed 20 mg PO BID #180 caps 05/13/22 11/08/22 Rx release carvedilol 25 mg tablet 25 mg PO BID #180 tabs 07/29/22 11/08/22 Rx hydrocodone 5 mg-acetaminophen 325 1 - 1.5 tab PO Q6H PRN pain #90 10/30/22 11/08/22 Rx mg tablet tabs Past Med/Surg History Medical History Acute cerebrovascular accident (CVA) Anemia Arteriosclerotic cardiovascular disease Atrial fibrillation COVID-19 Exertional shortness of breath GERD (gastroesophageal reflux disease) Hyperlipidemia Hypertension ICD (implantable cardioverter-defibrillator) in place ORIGINAL IMPLANTED 2006 ([facility]); new one placed 2013--GETS CHECKED BY DR. HUA *Most recent check was July 2019 Ischemic cardiomyopathy S/P [facility] ICD. Myocardial Infarction 2006 Stroke Subacute infarct of posterior R frontal lobe on imaging 11/2017. Residual numbness in LUE. Thrombus in heart chamber Resolved LV thrombus Surgical History H/O hemorrhoidectomy Anal Exam Under Anesthesia, Mixed internal and external [address] Espinosa 09/13/2019 History of cardiac cath 2006--2 stents [facility] History of colonoscopy 2018 History of esophagogastroduodenoscopy (EGD) History of heart artery stent 2 STENTS PLACED 2006, unsure if drug eluding History of repair of rotator cuff RT History of tonsillectomy History of tooth extraction all bottom removed Family History Father Family history of diabetes mellitus Myocardial infarction Mother Myocardial infarction Brother Myocardial infarction Denies family history of Ovarian cancer Prostate cancer Breast cancer Colorectal cancer Social History Smoking Status: Former smoker Tobacco Type: Cigarettes and Smokeless Tobacco (Dip or Chew) Age Started Using Tobacco: 18; Age Quit Using Tobacco: 47; packs per day: 1; Second Hand Exposure: No; Do You Dip or Chew Tobacco: Yes; Hx Alcohol Use: No Hx Substance Use: No Preferred Language: Divehi Communication Ability: Effective Visual Impairment: No Limitations Hearing Ability: Normal 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 HEENT normocephalic atraumatic mucous membranes moist. Breathing unlabored no accessory muscle use good effort. Skin shows no rashes no pallor or icterus. Labs and diagnostics noted. Results & Data Results & Data Vital Signs (Past 12 Hours) Vital Signs Temp Pulse Pulse Resp BP BP Pulse Ox 11/08/22 17:30 97.7 F 82 20 154/72 H 99 11/08/22 15:00 11/08/22 14:40 97.7 F 79 18 165/90 H 97 11/08/22 13:49 77 19 137/96 97 11/08/22 12:00 76 22 159/96 H 97 11/08/22 12:17 83 11/08/22 11:00 75 22 97 11/08/22 10:00 79 18 137/96 97 11/08/22 08:36 65 18 142/101 H 97 11/08/22 08:17 88 11/08/22 07:02 97.3 F L 93 H 18 151/101 H 96 O2 Del Method 11/08/22 17:30 Room Air 11/08/22 15:00 Room Air 11/08/22 14:40 Room Air 11/08/22 13:49 Room Air 11/08/22 12:00 Room Air 11/08/22 12:17 11/08/22 11:00 Room Air 11/08/22 10:00 Room Air 11/08/22 08:36 Room Air 11/08/22 08:17 11/08/22 07:02 Room Air Code Status & VTE Plan VTE Prophylaxis Plan VTE Prophylaxis will be ordered: Yes PG Care Time/CCT Total # of Minutes Spent Total Time Spent with Patient: Total time spent is greater than 50% in coordination of care (as documented) at patient's floor/unit and/or counseling patient: Coding Level of Care Code 04708 INT INP/OBS CARE 1/40MIN Diagnoses Ventricular tachycardia I47.20
[2022-11-08] MEDS: VALSARTAN/SACUBITRIL 26/24MG TAB PO SCH (20:23)
[2022-11-08] MEDS: MAGNESIUM OXIDE 400 MG TAB PO SCH (20:23)
[2022-11-08] MEDS: APIXABAN 5 MG TABLET PO SCH (20:23)
[2022-11-08] MEDS: PANTOprazole 40 MG TAB PO SCH (20:24)
[2022-11-08] MEDS ORDERED: SENNA 8.6 MG TAB PO SCH (21:00)
--- NOTE | 2022-11-09 08:10 | Hospitalist Progress Note ---
Date of Service November 09, 2022 Assessment & Plan (1) Ventricular tachycardia: (2) Ischemic cardiomyopathy: (3) GERD (gastroesophageal reflux disease): (4) Hypertension: Plan #Ventricular Tachycardia Add amiodarone 200mg TID Add Entresto 26/24mg BID #Ischemic Cardiomyopathy Continue Apixaban Continue atorvastatin Continue Plavix Continue Imdur #HTN #GERD Pantoprazole Admission and Anticipated Discharge Date Admission Date: November 08, 2022 Subjective 67 yo PMHx CVA, anemia, Afib, GERD, HLD, HTN, AR w/HFrEF w/ICD admitted with V Tach s/p ICD firing This AM: resting comfortably in NAD. Denies GRIFFIN, CP, SOB, N/V/D. No further ICD triggers. Pt desires discharge today. Review of Systems Review of Systems: reviewed, per HPI Physical Exam Physical Exam: General: patient resting comfortably, NAD, non-toxic in appearance, AA&O x 4, answers questions appropriately and follows commands. Skin: warm, dry, intact HEENT: NC/AT, anicteric sclera, conjunctiva without injection, moist mucus membranes, trachea midline, no thyromegaly, no JVD Heart: +S1/S2, regular, no m/r/g Lungs: equal air entry bilaterally, no rales/rhonchi/wheezes Abd: +BS, soft, NT/ND, no masses/organomegaly/ascites Ext: warm, no clubbing/cyanosis or edema Neuro: nonfocal, patient AA&O x 4, speech intact, no facial droop, moving all extremities on command. Results & Data Results & Data Vital Signs (Past 12 Hours) Vital Signs Temp Pulse Pulse Resp BP Pulse Ox O2 Del Method 11/09/22 03:09 36.6 C 70 18 101/51 L 95 Room Air 11/09/22 00:05 70 11/08/22 22:30 36.9 C 70 18 124/69 97 Room Air Laboratory Results 11/08/22 11/08/22 11/08/22 Range/Units 15:08 09:36 07:35 Magnesium 1.9 (1.7-2.4) mg/dl Troponin I High Sens 17.8 19.8 D 13.1 (0-20) pg/ml Resident Activity Tracking Resident Involvement: Resident Care Provided Care Provided: Adult [facility]
[2022-11-09] MEDS ORDERED: ATORVASTATIN 40 MG TAB PO SCH (09:00)
[2022-11-09] MEDS ORDERED: CLOPIDOGREL BISULFATE 75 MG TAB PO SCH (09:00)
[2022-11-09] MEDS ORDERED: ISOSORBIDE MONO EXTENDED REL 30 MG TABCR PO SCH (09:00)
[2022-11-09 09:07] LABS: Albumin Globulin Ratio 1.4 (0.9-2); Albumin Level 4.1 gm/dl (3.4-5.0); BUN Creatinine Ratio 11.3 (10-20); Bilirubin,Total 0.7 mg/dl (0.2-1.0); Calcium 9.2 mg/dl (8.6-10.3); Creatinine Clr Calc Pharmacy 66.7 ml/min; Est GFR (African American) 83.2 ml/min; Est GFR (Non-African American) 71.8 ml/min; Magnesium 1.9 mg/dl (1.7-2.4); Phosphorus 2.7 mg/dl (2.5-4.9); Potassium 4.3 mmol/L (3.5-5.1); Total Protein 7.1 gm/dl (6.0-8.3)
[2022-11-09] MEDS: PANTOprazole 40 MG TAB PO SCH (09:28)
[2022-11-09] MEDS: VALSARTAN/SACUBITRIL 26/24MG TAB PO SCH (09:28)
[2022-11-09] MEDS: AMIODARONE 200 MG TAB PO SCH ×2 (09:28→13:14)
[2022-11-09] MEDS: MAGNESIUM OXIDE 400 MG TAB PO SCH (09:28)
[2022-11-09] MEDS: APIXABAN 5 MG TABLET PO SCH (09:28)
--- NOTE | 2022-11-09 11:55 | Discharge Summary ---
Date of Service November 09, 2022 Admission HPI Per Admitting Provider ICD fired, found to be in vtach. feeling better now. cardiology consulted - input appreciated. Admission Exam Per Admitting Provider in general he is awake and alert pleasant no distress. HEENT normocephalic atraumatic mucous membranes moist. Breathing unlabored no accessory muscle use good effort. Skin shows no rashes no pallor or icterus. Labs and diagnostics noted. Principal Diagnosis V tach Discharge Exam General: patient resting comfortably, NAD, non-toxic in appearance, AA&O x 4, answers questions appropriately and follows commands. Skin: warm, dry, intact HEENT: NC/AT, anicteric sclera, conjunctiva without injection, moist mucus membranes, trachea midline, no thyromegaly, no JVD Heart: +S1/S2, regular Lungs: equal air entry bilaterally, no rales/rhonchi/wheezes Abd: +BS, soft, NT/ND, no masses/organomegaly/ascites Ext: warm, no clubbing/cyanosis or edema Neuro: nonfocal, patient AA&O x 4, speech intact, no facial droop, moving all extremities on command. Discharge Data Allergies Allergy/AdvReac Type Severity Reaction Status Date / Time cefdinir AdvReac Severe Vomiting Verified 09/17/22 13:38 Consultations 11/08/22 10:07 ED Decision to Admit Stat 11/08/22 14:39 Consult Cardiology Routine Hospital Course (1) Ischemic cardiomyopathy: (2) Ventricular tachycardia: (3) Hypertension: (4) GERD (gastroesophageal reflux disease): Plan Jason ascencio was admitted 11/08/2022 and found to have been in V tach s/p AICD firing. Cardiology was consulted and decision was made to load pt with amiodarone and to switch Carvedilol to Entresto. Initially plan was to treat with amiodorone 200mg TID for two weeks, in consultation with cardiology on day of discharge decision was made to treat with 400mg BID for two weeks, then 400mg daily thereafter for patient convenience. His rhythm was stable throughout the course of his stay and labs were unremarkable. Discharged 11/09/22 with plan for close cardiology follow up. Total Time Total Time Spent Total Time Spent (In Minutes): I spent 25 minutes seeing the patient, reviewing data, and completing documentation Discharge Plan Discharge Items Patient Disposition: Home - Self-Care Reason For Visit: VTACH, ICD FIRING Discharge Diagnosis: Vtach Activity: Resume your previous activity Non-emergency contact: Primary Care Provider and Poleyard Supervisor Call non-emergency contact if: you have any medication questions, your symptoms worsen, you have a fever and your temperature is above 101.5 Follow-up/Referrals: Frederick Bryson MD [Physician] - 11/16/22 10:00 am (Cardiology follow up: 11/16/2022 @ 10am with Dr. Irizarry) Clarice Dorsey MD [Primary Care Provider] - 11/18/22 9:20 am (PCP follow up: 11/18/22 @ 9:20am with Ayo LOJA) Diet: Heart Healthy Addtl Attending Provider Instructions: You were admitted to the hospital for ventricular tachycardia and because your defibrillator went off. You were treated with medications. The small animal veterinarian made some changes to your medications that you should continue to take and follow up with your small animal veterinarian within the next 2 weeks.. A discharge summary will be sent to your primary care physician to ensure continuity of care. Please bring this discharge summary with you to your next office appointment so that your provider can review it at that time. Medications: Your medication list has been reviewed and reconciled upon discharge to ensure accuracy and continuity of care. An updated list of all your medications is included with your hospital discharge paperwork. Please review this list closely and make note of any changes to your medications. You should STOP taking: Carvedilol You were started on and should continue taking amiodarone 400mg twice per day for 14 days. After that, you will take amiodarone 400mg once per day. You also started on a medication called Entresto (sacubitril/valsartan). You should continue to take this twice per day. Follow up appointments: - Make a follow up appointment with your PCP within the next week. It is very important that you follow up with them shortly after discharge from the hospital. - Keep all of your follow up appointments as already scheduled. If you cannot make an appointment, notify your provider. - Make a follow up with your small animal veterinarian within the next two weeks. CONTACT YOUR PRIMARY CARE PROVIDER if you experience any of the following: Difficulty following your treatment plan - Difficulty taking any of your medications CALL 911 OR GO TO THE EMERGENCY DEPARTMENT if you experience any of the following: - Sudden, severe abdominal pain or nausea/vomiting - Severe chest pain or chest pain that radiates to your jaw or arm - Sudden, severe shortness of breath or difficulty breathing Pending Studies at Discharge: No Stand-Alone Forms: My [facility] Medications and DC Order Prescriptions: New amiodarone 400 mg tablet 400 mg PO BID Qty: 60 0RF Rx Instructions: Take one tablet twice per day for 14 days, then take one tablet once per day Entresto 24-26 mg Tablet 1 tab PO BID Qty: 60 0RF Continued ondansetron 4 mg tablet,disintegrating 8 mg PO Q8H PRN (Reason: nausea and vomiting) Qty: 40 0RF nitroglycerin 0.4 mg tablet, sublingual See Rx Instructions .ROUTE .COMPLEX Qty: 75 1RF Dose Instruction: PLACE 1 TABLET UNDER TONGUE EVERY 5 MINS, UP TO 3 DOSES NEEDED FOR CHEST PAIN Rx Instructions: PLACE 1 TABLET UNDER TONGUE EVERY 5 MINS, UP TO 3 DOSES NEEDED FOR CHEST P AIN hydrocodone-acetaminophen 5-325 mg tablet 1 - 1.5 tab PO Q6H PRN (Reason: pain) Qty: 90 0RF isosorbide mononitrate 30 mg tablet extended release 24 hr 30 mg PO DAILY Qty: 90 3RF omeprazole 20 mg capsule,delayed release(DR/EC) 20 mg PO BID Qty: 180 3RF diclofenac sodium 1 % gel 2 g topical QID PRN (Reason: pain, moderate) Qty: 100 2RF albuterol sulfate [ProAir HFA] 90 mcg/actuation HFA aerosol inhaler 2 puff INHALATION 6XD PRN (Reason: Wheezing) Qty: 6.7 5RF Eliquis 5 mg tablet 5 mg PO BID Qty: 180 3RF sennosides [Senokot] 8.6 mg tablet 8.6 mg PO HS Qty: 30 0RF atorvastatin 80 mg Tablet 80 mg PO DAILY clopidogrel 75 mg Tablet 75 mg PO DAILY Discontinued carvedilol 25 mg tablet 25 mg PO BID Qty: 180 3RF Discharge Orders: Discharge Order (Routine); Ordered 11/09/22 Ordered By: Blas Mclaughlin Admission Data Admit Date/Time: 11/08/22 10:02 Attending Provider: Angel Sandy Admit Provider: Jose Alberto Salcido Primary Care Provider: Clarice Dorsey Other Providers: Jose Alberto Salcido ; Nghia Salinas Other Interventions: Discharge Summary Assessment (RN) Last Done: 11/09/22 12:32 Supervising Physician Co-Signing Physician Notes ATTESTATION I also saw the patient and confirmed coates portions of the history and exam. I agree with the impression and plan in the resident documentation, and as summarized below. I also discussed the case with cardiology. Patient is looking forward to discharge this afternoon EXAM Seated in bed. No complaints. 132/81, 68, 18, 36.4, 90% room air Heart rate regular, respirations nonlabored IMPRESSION & PLAN Patient stable for discharge. He understands the medication changes and plan follow-up. Return to the hospital for change in symptoms/worsening symptoms. Outpatient follow-up with cardiology has been arranged. Additional per resident documentation Resident Activity Tracking Resident Involvement: Resident Care Provided Care Provided: Adult Hospital Medicine
== END 2022-11-09 14:42 | disposition home or self-care (01) ==
LOC: ED 07:00 → SUATTDRO 10:02 → 4W 10:02 → INTOOBSV 10:02 → 4W 13:49

== ENCOUNTER 2025-01-04 19:24 | Observation (INO) ==
[2025-01-04] MEDS: SODIUM CHLORIDE 0.9% 500 ML IV STA (19:36)
[2025-01-04 19:45] LABS: Hematocrit (blood only) 46.1 % (42.0-52.0); Hemoglobin 15.1 g/dL (14.0-18.0); Immature Granulocytes # (auto) 0.02 K/uL (0.01-0.20); Immature Granulocytes % (auto) 0.2 %; Mean Corpuscular Hemoglobin 27.0 pg (25.0-34.0); Mean Corpuscular Volume 82.5 fL (80.0-100.0); Platelet Count 223 K/uL (130-400); RDW Standard Deviation 44.2 fL (36.4-46.3); Red Blood Count 5.59 M/uL (4.70-6.10); White Blood Count 9.14 K/ul (4.8-10.8)
--- NOTE | 2025-01-04 19:50 | Emergency Department Note ---
Impression & Plan Stercoral colitis, Abdominal pain, Fecal impaction ED Provider Note NAME: JANE RUIZ AGE: 69 SEX: M : 1955 ARRIVES VIA: Ambulance INFORMANT: Patient, ED PROVIDER(S): Frederick Huston DO CHIEF COMPLAINT: Urinary retention HPI: The patient is a 69-year-old male who presented to the emergency department by ambulance for an evaluation of urinary retention. The patient started having symptoms over the last few hours. He has had a history of similar symptoms in the past. He has a history of prostate cancer. The patient also uses oral anticoagulation. He denies having any hematuria. He denies having any back pain. The patient's had no vomiting. He states that the symptoms were treated in the past with a Carlos catheter but he was not sent home with a Carlos catheter. ROS: See above HPI for pertinent positives & negatives. A total of 10 systems reviewed and were otherwise negative. PAST MEDICAL HISTORY: See Below PAST SURGICAL HISTORY: See Below FAMILY HISTORY: See Below SOCIAL HISTORY: See Below HOME MEDICATIONS: See Below ALLERGIES: See Below VITALS: See Below PHYSICAL EXAMINATION: GENERAL: The patient is awake and alert. The patient is very anxious and appears uncomfortable. EYES: The conjunctivae are clear. The pupils are round and reactive. EARS, NOSE, MOUTH AND THROAT: The nose is without any evidence of any deformity. NECK: The neck is nontender and supple. RESPIRATORY: Normal respiratory effort is noted there is no evidence of wheezing rhonchi or rales CARDIOVASCULAR: Regular rate and rhythm noted there no murmurs rubs or gallops normal S1 normal S2. GASTROINTESTINAL: The abdomen is distended. There is suprapubic tenderness as well as fullness with bladder distention. MUSCULOSKELETAL/EXTREMITIES: There is no evidence of gross deformity full range of motion is noted in the hips and shoulders. SKIN: There is no obvious evidence of any rash. There are no petechiae, pallor or cyanosis noted. NEUROLOGIC: Patient is awake alert and oriented x3 MEDICAL DECISION MAKING: The patient is a 69-year-old male who presented to the emergency department for an evaluation of urinary retention and abdominal distention. He is also had constipation. The patient did have a Carlos catheter placed. He did have urinary tension but it was not the cause of the patient's presentation. He still had abdominal distention and abdominal pain. KUB was obtained and did show significant amount of stool but because of the ambiguity of the x-ray I did order a CT abdomen pelvis. I discussed the patient's laboratory and radiographic studies with him. He was treated with an enema in the emergency department with only minimal relief of his symptoms. The CT does appear to show signs of fecal impaction as well as inflammation and stranding around the rectum. I do feel this is a dangerous position for the patient and he may be at risk for infection or even perforation. For this reason he was treated with IV antibiotics. I discussed his condition with the on-call [facility] hospitalist. They have agreed to evaluate the patient in the emergency department for further management and disposition. Triage Nursing notes reviewed. Prior medical records reviewed Vital Signs: reviewed and remarkable for no significant abnormalities Differential diagnosis: Testicular torsion, mass, infection, hernia, hydrocele, epididymitis, STI, trauma, intra-abdominal process, as well as other pathologies. ER treatment provided: See below Diagnostics interpreted by me: ECG: none Cardiac Monitoring: An order was placed for continuous cardiac monitoring. The monitor shows a rate of 85 bpm with sinus rhythm. Laboratory studies: As stated above and show below. Imaging studies: See below. Radiographic imaging was reviewed by myself Consultation(s): I discussed this case with Dr. Henry [facility] Past Med/Surg History Problem List (Updated 01/04/25 @ 22:26 by Frederick Huston DO) Fecal impaction (Acute) Abdominal pain (Acute) Stercoral colitis (Acute) Ischemic cardiomyopathy with implantable cardioverter-defibrillator (ICD) GRAY (dyspnea on exertion) Anticoagulant long-term use ICD (implantable cardioverter-defibrillator) battery depletion Atrial fibrillation ICD (implantable cardioverter-defibrillator) in place ORIGINAL IMPLANTED 2006 ([facility]); new one placed 2013-- *Most recent check was July 2019 Chronic systolic (congestive) heart failure Erectile dysfunction On amiodarone therapy Ventricular tachycardia Osteoarthritis of knees, bilateral Prostate cancer Elevated PSA S/P cardiac catheterization 05/21/21: Non-obstructive CAD, 50% InStent restenosis proximal LAD stent: FFR 0.83. Medical management recommended. Angiodysplasia of intestine (Chronic Unknown) "capsule endoscopy 09/18 " Hypertension (Chronic) Dyslipidemia (Chronic) GERD (gastroesophageal reflux disease) (Chronic) Ischemic cardiomyopathy (Chronic) S/P [facility] ICD. External hemorrhoids (Chronic) Right knee pain (Chronic) Shoulder pain (Chronic) Vitamin B12 deficiency (Chronic) CAD (coronary artery disease) Medical History History of CVA (cerebrovascular accident) Subacute infarct of posterior R frontal lobe on imaging 11/2017. Residual numbness in LUE. H/O acute myocardial infarction of anterior wall (2006) 2007 Diaphoresis COVID-19 Thrombus in heart chamber Resolved LV thrombus Exertional shortness of breath Arteriosclerotic cardiovascular disease GERD (gastroesophageal reflux disease) Hypertension Hyperlipidemia Anemia Surgical History H/O hemorrhoidectomy Anal Exam Under Anesthesia, Mixed internal and external [address] Espinosa 09/13/2019 History of repair of rotator cuff RT History of esophagogastroduodenoscopy (EGD) History of colonoscopy 2018 History of tooth extraction all bottom removed History of tonsillectomy History of heart artery stent 2 STENTS PLACED 2006, unsure if drug eluding History of cardiac cath 2006--2 stents [facility] Family History Father Family history of diabetes mellitus Myocardial infarction Mother Myocardial infarction Brother Myocardial infarction Denies family history of Ovarian cancer Prostate cancer Breast cancer Colorectal cancer Social History Smoking Status: Former smoker Tobacco Type: Smokeless Tobacco (Dip or Chew) Age Started Using Tobacco: 18; Age Quit Using Tobacco: 47; packs per day: 1; Second Hand Exposure: No; Do You Dip or Chew Tobacco: Yes; Hx Alcohol Use: No Hx Substance Use: No Preferred Language: Omani Communication Ability: Effective Visual Impairment: No Limitations Hearing Ability: Normal General Service Officer Required: No Beliefs That Will Affect Care: None marital status: Single Current Living Situation: Significant Other current occupational status: retired current occupation: used to work in construction How many Children do You have: 3 Feels Safe at Home: Yes Childhood Exposure to Second-Hand Smoke: Yes Diet: regular caffeine: Yes during the past year weight has: remained stable Dental Care, Regularly: No Physical Activity Frequency: Daily Seatbelt Use: always Sunscreen Use: Yes Assistive Devices: Cane, Denture - Lower and Glasses Allergies Allergies Allergy/AdvReac Type Severity Reaction Status Date / Time No Known Allergies Allergy Verified 01/04/25 20:07 Home Meds Home Medications Medication Instructions Recorded Confirmed clopidogrel 75 mg tablet 75 mg PO DAILY 05/21/21 01/04/25 carvedilol 12.5 mg tablet 12.5 mg PO BID 01/04/25 01/04/25 hydrocodone 10 mg-acetaminophen 1 tab PO TID PRN pain 01/04/25 01/04/25 325 mg tablet nitroglycerin 0.4 mg sublingual 0.4 mg sublingual DIRECTED PRN 01/04/25 01/04/25 tablet Chest Pain trazodone 50 mg tablet 50 mg PO HS PRN Sleep 01/04/25 01/04/25 Previous Rx's Medication Instructions Recorded sennosides 8.6 mg tablet (Senokot) 8.6 mg PO HS #30 tabs 08/09/19 ondansetron 4 mg disintegrating 8 mg (2 x 4 mg) PO Q8H PRN nausea 06/03/20 tablet and vomiting #40 tabs diclofenac sodium 1 % topical gel 2 g topical QID PRN pain, moderate 06/04/21 #100 grams isosorbide mononitrate 30 mg 30 mg PO DAILY #90 tabs 06/05/21 tablet,extended release 24 hr apixaban 5 mg tablet (Eliquis) 5 mg PO BID #180 tabs 03/11/23 omeprazole 20 mg capsule,delayed 20 mg PO BID #180 caps 01/03/24 release albuterol sulfate 90 mcg/actuation 2 puff inhalation 6XD PRN Wheezing 02/24/24 aerosol inhaler #6.7 grams amiodarone 200 mg tablet 200 mg PO DAILY #90 tabs 10/30/24 dapagliflozin propanediol 10 mg 10 mg PO DAILY #30 tabs 11/15/24 tablet (Farxiga) spironolactone 25 mg tablet 25 mg PO DAILY #30 tabs 11/15/24 levothyroxine 50 mcg tablet 50 mcg PO DAILY #60 tabs 12/12/24 rosuvastatin 20 mg tablet 20 mg PO DAILY #90 tabs 12/20/24 Results & Data (ED) Vital Signs Vital Signs - 24 hr 01/04/25 19:30 01/04/25 19:34 01/04/25 19:41 Temperature 36.5 C Temperature Source Oral Pulse Rate 71 74 Respiratory Rate 20 Respiratory Effort / Characteristics Non-Labored Spontaneous Respiratory Depth Normal Blood Pressure 136/101 H Blood Pressure Mean 112 Pulse Oximetry 96 97 Oxygen Delivery Method Room Air Room Air Sepsis Recent Fever Within 48 Hours No Sepsis New/Unexplained Change in Mental Status N/A Sepsis Action Taken by Nursing No Action Required 01/04/25 20:00 01/04/25 20:30 01/04/25 21:01 Temperature Temperature Source Pulse Rate 79 77 78 Respiratory Rate 18 18 24 Respiratory Effort / Characteristics Respiratory Depth Blood Pressure 149/95 H 161/92 H 134/74 Blood Pressure Mean 113 115 83 Pulse Oximetry 97 94 97 Oxygen Delivery Method Sepsis Recent Fever Within 48 Hours Sepsis New/Unexplained Change in Mental Status Sepsis Action Taken by Nursing 01/04/25 22:00 Temperature Temperature Source Pulse Rate 85 Respiratory Rate 24 Respiratory Effort / Characteristics Respiratory Depth Blood Pressure 126/74 Blood Pressure Mean 91 Pulse Oximetry 95 Oxygen Delivery Method Sepsis Recent Fever Within 48 Hours Sepsis New/Unexplained Change in Mental Status Sepsis Action Taken by Assisted Medications Current Medication List: was personally reviewed by me Laboratory Data Attestation: I reviewed the patient's lab results. 01/04/25 19:35 01/04/25 19:35 Lab Results 01/04/25 01/04/25 Range/Units 19:35 19:45 WBC 9.14 (4.8-10.8) K/ul RBC 5.59 (4.70-6.10) M/uL Hgb 15.1 (14.0-18.0) g/dL Hct 46.1 (42.0-52.0) % MCV 82.5 (80.0-100.0) fL MCH 27.0 (25.0-34.0) pg MCHC 32.8 (32.0-36.0) g/dL RDW Std Deviation 44.2 (36.4-46.3) fL RDW Coeff of Em 14.7 H (11.5-14.5) % Plt Count 223 (130-400) K/uL MPV 9.8 (9.4-12.4) fL Immature Gran % (Auto) 0.2 % Neut % (Auto) 68.1 % Lymph % (Auto) 18.3 % [place] % (Auto) 10.1 % Eos % (Auto) 2.5 % Baso % (Auto) 0.8 % Neut # (Auto) 6.23 (1.40-6.50) K/uL Lymph # (Auto) 1.67 (1.20-3.40) K/uL [place] # (Auto) 0.92 H (0.11-0.59) K/uL Eos # (Auto) 0.23 (0.00-0.50) K/uL Baso # (Auto) 0.07 (0.00-0.20) K/uL Immature Gran # (Auto) 0.02 (0.01-0.20) K/uL Sodium 140 (136-145) mmol/L Potassium 4.6 (3.5-5.1) mmol/L Chloride 106 (98-107) mmol/L Carbon Dioxide 26 (21-32) mmol/L Anion Gap 8 (3-11) BUN 16 (6-23) mg/dl Creatinine 1.47 H (0.6-1.4) mg/dl Est Cr Clr Drug Dosing 46.8 ml/min eGFR 51.00 BUN/Creatinine Ratio 10.9 (10-20) Glucose 141 H (70-99(Fasting)) mg/dl Calcium 9.1 (8.6-10.3) mg/dl Total Bilirubin 0.4 (0.2-1.0) mg/dl AST 27 (13-39) U/L ALT 41 (7-52) U/L Alkaline Phosphatase 49 (34-104) U/L Total Protein 7.3 (6.0-8.3) gm/dl Albumin 4.0 (3.4-5.0) gm/dl Globulin 3.3 (2.5-4.0) gm/dl Albumin/Globulin Ratio 1.2 (0.9-2) Lipase 31 (11-82) U/L Urine Color Yellow Urine Appearance Clear (Clear) Urine pH 5.5 (4.5-7.5) Ur Specific [place] 1.045 H (1.000-1.030) Urine Protein Negative (Negative) Urine Glucose (UA) 3+ H (Negative) Urine Ketones Trace H (Negative) Urine Blood Negative (Negative) Urine Nitrite Negative (Negative) Urine Bilirubin Negative (Negative) Urine Urobilinogen Negative (Negative) Ur Leukocyte Esterase Negative (Negative) Urine Comment Administered Medications Discontinued Medications Sodium Chloride (Nss) 500 mls @ 999 mls/hr IV .Q31M STA Stop: 01/04/25 20:02 Last Infusion: 01/04/25 20:10 Dose: Infused Documented By: Admin: 01/04/25 19:36 Dose: 999 mls/hr Documented By: YON Piperacillin Sod/Tazobactam Sod (Zosyn) 4.5 gm in 100 mls @ 200 mls/hr IV NOW ONE; Protocol Stop: 01/04/25 22:11 Last Admin: 01/04/25 21:51 Dose: 200 mls/hr Documented By: YON Ioversol (Optiray 320 100ml) 92 ml IV ONCE ONE Stop: 01/04/25 21:32 Last Admin: 01/04/25 21:31 Dose: 92 ml Documented By: DAVE Ondansetron HCl (Ondansetron Inj 2 Mg/Ml 2 Ml Vial) 4 mg IV NOW STA Stop: 01/04/25 20:16 Last Admin: 01/04/25 20:20 Dose: 4 mg Documented By: YON Imaging Data Attestation: I personally reviewed and interpreted this imaging study as follows: My Impression: CT of the abdomen and pelvis was obtained in the emergency department. My interpretation is significant constipation and fecal impaction, final report pending. KUB was obtained in the emergency department. My interpretation is no free air or definite bowel obstruction, final report pending. Discharge Plan Visit Data Chief Complaint: Abdominal Pain Stated Complaint: Abdominal Pain, Urinary Retention, Rectal Pain ED Provider: Frederick Huston Discharge Problem: Stercoral colitis, Abdominal pain, Fecal impaction Patient Disposition: Being Evaluated by Hospitalist Condition: Fair Forms Stand Alone Forms: My [facility] Prescriptions Prescriptions: No Action ondansetron 4 mg tablet,disintegrating 8 mg PO Q8H PRN (Reason: nausea and vomiting) Qty: 40 0RF Eliquis 5 mg tablet 5 mg PO BID Qty: 180 3RF omeprazole 20 mg capsule,delayed release(DR/EC) 20 mg PO BID Qty: 180 3RF albuterol sulfate 90 mcg/actuation HFA aerosol inhaler 2 puff INHALATION 6XD PRN (Reason: Wheezing) Qty: 6.7 5RF amiodarone 200 mg tablet 200 mg PO DAILY Qty: 90 0RF levothyroxine 50 mcg tablet 50 mcg PO DAILY Qty: 60 0RF rosuvastatin 20 mg tablet 20 mg PO DAILY Qty: 90 3RF isosorbide mononitrate 30 mg tablet extended release 24 hr 30 mg PO DAILY Qty: 90 3RF diclofenac sodium 1 % gel 2 g topical QID PRN (Reason: pain, moderate) Qty: 100 2RF dapagliflozin propanediol [Farxiga] 10 mg tablet 10 mg PO DAILY Qty: 30 2RF spironolactone 25 mg tablet 25 mg PO DAILY Qty: 30 2RF sennosides [Senokot] 8.6 mg tablet 8.6 mg PO HS Qty: 30 0RF clopidogrel 75 mg Tablet 75 mg PO DAILY carvedilol 12.5 mg tablet 12.5 mg PO BID trazodone 50 mg tablet 50 mg PO HS PRN (Reason: Sleep) hydrocodone-acetaminophen 10-325 mg tablet 1 tab PO TID PRN (Reason: pain) nitroglycerin 0.4 mg tablet, sublingual 0.4 mg sublingual DIRECTED PRN (Reason: Chest Pain) Rx Instructions: PLACE 1 TABLET UNDER TONGUE EVERY 5 MINS, UP TO 3 DOSES NEEDED FOR CHEST PAIN Referrals Referrals: Clarice Dorsey MD [Primary Care Provider] -
[2025-01-04 20:00] LABS: Appearance Urine Clear (Clear); Glucose Urine UA 3+ (Negative)
[2025-01-04 20:03] LABS: Alanine Aminotransferase 41.0 U/L (7-52); Albumin Globulin Ratio 1.2 (0.9-2); Albumin Level 4.0 gm/dl (3.4-5.0); Alkaline Phosphatase 49.0 U/L (34-104); Anion Gap 8.0 (3-11); Bilirubin,Total 0.4 mg/dl (0.2-1.0); Blood Urea Nitrogen 16.0 mg/dl (6-23); Calcium 9.1 mg/dl (8.6-10.3); Carbon Dioxide 26.0 mmol/L (21-32); Chloride 106.0 mmol/L (98-107); Creatinine Clr Calc Pharmacy 46.8 ml/min; Globulin 3.3 gm/dl (2.5-4.0); Glucose 141.0 mg/dl (70-99(Fasting)); Lipase 31.0 U/L (11-82); Potassium 4.6 mmol/L (3.5-5.1); Sodium 140.0 mmol/L (136-145); Total Protein 7.3 gm/dl (6.0-8.3)
[2025-01-04] MEDS: ONDANSETRON INJ 2 MG/ML 2 ML VIAL IV STA (20:20)
[2025-01-04] MEDS: OPTIRAY 320 100ml IV ONE (21:31)
[2025-01-04] MEDS: PIPERACILLIN/TAZOBACTAM 4.5 GM/100 ML BAG IV ONE (21:51)
--- NOTE | 2025-01-04 22:10 | History & Physical Report ---
Date of Service January 04, 2025 Assessment & Plan (1) Abdominal pain: (2) Fecal impaction: Plan 69-year-old male PMHx CAD s/p stent also with ICD, vitamin B12 deficiency, CARTER, schema cardiomyopathy, GERD, dyslipidemia, HTN, angiodysplasia of the intestine, prostate cancer, ED, heart failure, and A-fib on anticoagulation presenting for lower abdominal pain inability to urinate or defecate since 1400. Labs are overall unremarkable with exception of slightly elevated creatinine 1.47 glucose 141. KUB and CTAP are pending official read. #Intractable abdominal pain/Constipation, fecal impaction Abdominal pain started 1400 the day of arrival with associated inability to urinate or defecate since 1400. No F/C. Slowly having some progress with BM, received enema in ED with some stool relieved, still with abdominal pain. Admission for intractable abdominal pain likely 2/2 constipation. - CBC WNL; CMP grossly WNL with exception creatinine 1.47 - BMP am - UA without infection - KUB pending official - CTAP pending official read - Liquid diet, advance as patient tolerate - Bladder scan with PVR; bladder scan prn - Received 500 mL NSS in ED - deferred further IVF at this time as long as pt able to tolerate oral intake (11/2024 EF 20-25%) - Zofran prn N/V - Acetaminophen prn fever/pain; pt takes hydro-acet at home, will hold for now as he is constipated - pt agreeable, pain is manageable at present - Constipation regimen - Magnesium citrate now + MiraLAX q1hr until BM occurs #Renal insufficiency Very mild increase of Cr, likely related to symptoms of abdominal pain therefore decreased intake. Received 500 mL NSS in ED. H/o HFrEF. - Cr 1.47 - BMP am - UA negative for infection - Bladder scan with PVR; Bladder scan prn - CTAP pending official read - Hold spironolactone at admission - Encourage oral intake rather than additional IVF at this time given poor cardiac history #PAF- Amiodarone, Eliquis, carvedilol, isosorbide mononitrate - continue #CAD s/p stents/Ischemic cardiomyopathy s/p ICD/HFrEF- S/p anterior MT (2006) s/p 2 LAD stents; Also with history of ischemic cardiomyopathy s/p [facility] AICD (2006) with generator change out (2013); h/o HFrEF, EF 20-25% 11/2024; Follows with cardiology; Dapagliflozin, spironolactone; Clopidogrel - Hold spironolactone at admission; continue remaining medications #Hypothyroidism- Levothyroxine - continue #GERD- Omeprazole - continue #Dyslipidemia/H/o CVA (11/2017)- Rosuvastatin - continue #Insomnia- Trazodone - continue #Shoulder pain- Chronic, utilizes hydro-acet for - hold in setting of constipation #H/o prostate CA- Dx 02/2022, opted for active surveillance; last urology visit 03/24/2023. Dispo: Obs, med/sx VTE Prophylaxis: On Eliquis - continue This document was dictated utilizing Sensitive Object. Please excuse any gra mmatical errors that may be secondary to use of this software. Admission and Anticipated Discharge Date Admission Date: 01/04/2025 History of Present Illness Chief Complaint: Abdominal pain Primary Care Provider: Clarcie Dorsey MD 69-year-old male PMHx CAD s/p stent also with ICD, vitamin B12 deficiency, CARTER, ischemic cardiomyopathy, GERD, dyslipidemia, HTN, angiodysplasia of the intestine, prostate cancer, ED, heart failure, and A-fib on anticoagulation presenting for lower abdominal pain inability to urinate or defecate since 1400. Reports that he had a gradual then sudden onset of abdominal pain starting at 1400 the day of arrival. The pain is located near his umbilicus, without radiation, and is described as dull in nature. At its worst, the pain was a 8.5/10 on the pain scale, currently a 4/10. Reports that his normal bowel habits include 2 BMs per day. Last BM the evening [employer]. Did have 1 episode of vomiting while in the ED, none aside from this and he is without nausea. No F/C, just cold at present. Had a difficult time with urinating today, was unable to once onset of abdominal pain. Admits that his bottom is sore from wiping, prefers to utilize oral medications moving forward. He has no additional symptoms to include CP, SOB, palpitations, URI symptoms, LUTS, weakness, numbness/tingling, syncope, or falls. He does take his hydro-acet as prescribed, but does not take his laxative with this. ED evaluation CBC without leukocytosis or leukopenia, stable H&H and platelets; CMP creatinine 1.47, glucose 141 otherwise unremarkable; lipase 31; UA without infection; KUB XR pending official read; CTAP pending official read.; Provided with 500 mL NSS, Zosyn 4.5 g IV, and Zofran 4 mg IV in ED. Please see Dr. Henry's attestation for adjustments/additions to treatment plan. Allergies Allergy/AdvReac Type Severity Reaction Status Date / Time No Known Allergies Allergy Verified 01/04/25 20:07 Home Medications Medication Instructions Recorded Confirmed Type sennosides 8.6 mg tablet (Senokot) 8.6 mg PO HS #30 tabs 08/09/19 01/04/25 Rx ondansetron 4 mg disintegrating 8 mg (2 x 4 mg) PO Q8H PRN nausea 06/03/20 01/04/25 Rx tablet and vomiting #40 tabs clopidogrel 75 mg tablet 75 mg PO DAILY 05/21/21 01/04/25 History diclofenac sodium 1 % topical gel 2 g topical QID PRN pain, moderate 06/04/21 01/04/25 Rx #100 grams isosorbide mononitrate 30 mg 30 mg PO DAILY #90 tabs 06/05/21 01/04/25 Rx tablet,extended release 24 hr apixaban 5 mg tablet (Eliquis) 5 mg PO BID #180 tabs 03/11/23 01/04/25 Rx omeprazole 20 mg capsule,delayed 20 mg PO BID #180 caps 01/03/24 01/04/25 Rx release albuterol sulfate 90 mcg/actuation 2 puff inhalation 6XD PRN Wheezing 02/24/24 01/04/25 Rx aerosol inhaler #6.7 grams amiodarone 200 mg tablet 200 mg PO DAILY #90 tabs 10/30/24 01/04/25 Rx dapagliflozin propanediol 10 mg 10 mg PO DAILY #30 tabs 11/15/24 01/04/25 Rx tablet (Farxiga) spironolactone 25 mg tablet 25 mg PO DAILY #30 tabs 11/15/24 01/04/25 Rx levothyroxine 50 mcg tablet 50 mcg PO DAILY #60 tabs 12/12/24 01/04/25 Rx rosuvastatin 20 mg tablet 20 mg PO DAILY #90 tabs 12/20/24 01/04/25 Rx carvedilol 12.5 mg tablet 12.5 mg PO BID 01/04/25 01/04/25 History hydrocodone 10 mg-acetaminophen 1 tab PO TID PRN pain 01/04/25 01/04/25 History 325 mg tablet nitroglycerin 0.4 mg sublingual 0.4 mg sublingual DIRECTED PRN 01/04/25 01/04/25 History tablet Chest Pain trazodone 50 mg tablet 50 mg PO HS PRN Sleep 01/04/25 01/04/25 History Past Med/Surg History Problem List Fecal impaction (Acute) Abdominal pain (Acute) Stercoral colitis (Acute) Ischemic cardiomyopathy with implantable cardioverter-defibrillator (ICD) GRAY (dyspnea on exertion) Anticoagulant long-term use ICD (implantable cardioverter-defibrillator) battery depletion Atrial fibrillation ICD (implantable cardioverter-defibrillator) in place ORIGINAL IMPLANTED 2006 ([facility]); new one placed 2013-- *Most recent check was July 2019 Chronic systolic (congestive) heart failure Erectile dysfunction On amiodarone therapy Ventricular tachycardia Osteoarthritis of knees, bilateral Prostate cancer Elevated PSA S/P cardiac catheterization 05/21/21: Non-obstructive CAD, 50% InStent restenosis proximal LAD stent: FFR 0.83. Medical management recommended. Angiodysplasia of intestine (Chronic Unknown) "capsule endoscopy 09/18 " Hypertension (Chronic) Dyslipidemia (Chronic) GERD (gastroesophageal reflux disease) (Chronic) Ischemic cardiomyopathy (Chronic) S/P [facility] ICD. External hemorrhoids (Chronic) Right knee pain (Chronic) Shoulder pain (Chronic) Vitamin B12 deficiency (Chronic) CAD (coronary artery disease) Medical History History of CVA (cerebrovascular accident) Subacute infarct of posterior R frontal lobe on imaging 11/2017. Residual numbness in LUE. H/O acute myocardial infarction of anterior wall (2006) 2006 Diaphoresis COVID-19 Thrombus in heart chamber Resolved LV thrombus Exertional shortness of breath Arteriosclerotic cardiovascular disease GERD (gastroesophageal reflux disease) Hypertension Hyperlipidemia Anemia Surgical History H/O hemorrhoidectomy Anal Exam Under Anesthesia, Mixed internal and external [address] Espinosa 09/13/2019 History of repair of rotator cuff RT History of esophagogastroduodenoscopy (EGD) History of colonoscopy 2018 History of tooth extraction all bottom removed History of tonsillectomy History of heart artery stent 2 STENTS PLACED 2006, unsure if drug eluding History of cardiac cath 2006--2 stents [facility] Family History Father Family history of diabetes mellitus Myocardial infarction Mother Myocardial infarction Brother Myocardial infarction Denies family history of Ovarian cancer Prostate cancer Breast cancer Colorectal cancer Social History Smoking Status: Former smoker Tobacco Type: Smokeless Tobacco (Dip or Chew) Age Started Using Tobacco: 18; Age Quit Using Tobacco: 47; packs per day: 1; Second Hand Exposure: Yes; Do You Dip or Chew Tobacco: Yes; Tobacco Cessation Education Requested by Patient: No Hx Alcohol Use: No Hx Substance Use: No Preferred Language: Samoan Communication Ability: Effective Visual Impairment: No Limitations Hearing Ability: Normal Charge Poster Required: No Beliefs That Will Affect Care: None marital status: Single Current Living Situation: Alone current occupational status: retired current occupation: used to work in construction How many Children do You have: 3 Other Information That Helps Us Care for You: No Feels Safe at Home: Yes Safety Concerns: Feels Safe At This Time Childhood Exposure to Second-Hand Smoke: Yes Diet: regular caffeine: Yes during the past year weight has: remained stable Dental Care, Regularly: No Physical Activity Frequency: Daily Seatbelt Use: always Sunscreen Use: Yes Assistive Devices: Glasses Assistive Devices Comment: for reading Review of Systems Review of Systems: All systems reviewed & are unremarkable except as noted in Subjective Physical Exam Physical Exam: General: No acute distress Skin: Warm and dry Head: Normocephalic, atraumatic Eyes: PERRL, conjunctivae clear, sclera non-icteric ENT: External ear and ear canal without swelling; nose atraumatic; fair dentition, tongue normal appearance, pharynx normal Neck: Supple, no LAD Cardio: RRR, no M/G/R, S1 and S2 normal Resp: No respiratory distress, Lungs CTA in all lobes bilaterally, no wheezes, r ales, or rhonchi Abdomen: Soft, symmetric, nontender; No masses or hepatosplenomegaly; Bowel sounds normoactive; passing gas MSK: No deformities; pulses palpable and equal; no edema. Neuro: Awake, alert; Sensation intact bilaterally; CN grossly intact Psych: Appropriate mood and affect; good judgement and insight. Results & Data Results & Data Vital Signs (Past 12 Hours) Vital Signs Temp Pulse Resp BP Pulse Ox O2 Del Method 01/04/25 22:00 85 24 126/74 95 01/04/25 21:01 78 24 134/74 97 01/04/25 20:30 77 18 161/92 H 94 01/04/25 20:00 79 18 149/95 H 97 01/04/25 19:41 74 01/04/25 19:34 97 Room Air 01/04/25 19:30 36.5 C 71 20 136/101 H 96 Room Air Laboratory Results 01/04/25 01/04/25 19:45 19:35 WBC 9.14 RBC 5.59 Hgb 15.1 Hct 46.1 MCV 82.5 MCH 27.0 MCHC 32.8 RDW Std Deviation 44.2 RDW Coeff of Em 14.7 H Plt Count 223 MPV 9.8 Immature Gran % (Auto) 0.2 Neut % (Auto) 68.1 Lymph % (Auto) 18.3 [place] % (Auto) 10.1 Eos % (Auto) 2.5 Baso % (Auto) 0.8 Neut # (Auto) 6.23 Lymph # (Auto) 1.67 [place] # (Auto) 0.92 H Eos # (Auto) 0.23 Baso # (Auto) 0.07 Immature Gran # (Auto) 0.02 Sodium 140 Potassium 4.6 Chloride 106 Carbon Dioxide 26 Anion Gap 8 BUN 16 Creatinine 1.47 H Est Cr Clr Drug Dosing 46.8 eGFR 51.00 BUN/Creatinine Ratio 10.9 Glucose 141 H Calcium 9.1 Total Bilirubin 0.4 AST 27 ALT 41 Alkaline Phosphatase 49 Total Protein 7.3 Albumin 4.0 Globulin 3.3 Albumin/Globulin Ratio 1.2 Lipase 31 Urine Color Yellow Urine Appearance Clear Urine pH 5.[address] 1.045 H Urine Protein Negative Urine Glucose (UA) 3+ H Urine Ketones Trace H Urine Blood Negative Urine Nitrite Negative Urine Bilirubin Negative Urine Urobilinogen Negative Ur Leukocyte Esterase Negative Urine Comment Medications Administered 500 mL NSS Zofran 4 mg IV Zosyn 4.5 g IV Code Status & VTE Plan Code Status Full Supervising Physician Co-Signing Physician Notes Patient seen and examined, chart reviewed, case discussed with MELVIN Mendez and I agree with the assessment and plan as above. In brief, patient is a 69yo male with history of prior CVA, CAD, HTN, HLP, PAF, prior cardiac thrombus on Apixaban anticoagulation presenting with one day of progressive abdominal pain, constipation. On exam he is resting comfortably, NAD Skin - no rash HEENT - MMM, Neck supple Heart - +S1/S2, regular Lungs - CTA Abd - soft, mildly distended and tender to palpation, no rebound/guarding Ext - no edema Labs and images reviewed Assessment/Plan -Admit to medical -Aggressive bowel regimen - Miralax, Magnesium citrate -IV hydration -Remainder as above PG Care Time/CCT Total # of Minutes Spent Total Time Spent with Patient: Total time spent is greater than 50% in coordination of care (as documented) at patient's floor/unit and/or counseling patient: Coding Level of Care Code 95042 INT INP/OBS CARE 3/75MIN Diagnoses Abdominal pain R10.9 Fecal impaction K56.41
[2025-01-04] MEDS ORDERED: MELATONIN 3 MG TAB PO PRN (23:35)
[2025-01-04] MEDS ORDERED: ALBUTEROL HFA 8 GM INHALER INH PRN (23:35)
[2025-01-04] MEDS ORDERED: ONDANSETRON INJ 2 MG/ML 2 ML VIAL IV PRN (23:35)
--- NOTE | 2025-01-04 23:42 | XRay Report ---
Exam(s): XR KUB EXAM: XR Abdomen, 1 View CLINICAL HISTORY: Reason for exam: constipation. TECHNIQUE: Frontal supine view of the abdomen/pelvis. COMPARISON: No relevant prior studies available. FINDINGS: Gastrointestinal tract: Moderate amount of stool within the colon. No dilation. Bones/joints: Unremarkable. No acute fracture. IMPRESSION: No acute findings. Electronically signed by: Jose Alberto Gonzales MD 01/04/25 23:41 PM
--- NOTE | 2025-01-04 23:55 | CT Scan Report ---
Exam(s): CT ABDOMEN + PELVIS With Contrast IV Amt: 92ml EXAM: CT Abdomen and Pelvis With Intravenous Contrast CLINICAL HISTORY: Reason for exam: [place]. TECHNIQUE: Axial computed tomography images of the abdomen and pelvis with intravenous contrast. CTDI is 20.79 mGy and DLP is 1261.28 mGy-cm. Automated exposure control was utilized for the study. A dose lowering technique was utilized adhering to the principles of ALARA. CONTRAST: Patient received 92ml of IV contrast COMPARISON: No relevant prior studies available. FINDINGS: Lung bases: Unremarkable. No mass. No consolidation. ABDOMEN: Liver: Unremarkable. No mass. Gallbladder and bile ducts: Unremarkable. No calcified stones. No ductal dilation. Pancreas: Unremarkable. No mass. No ductal dilation. Spleen: Unremarkable. No splenomegaly. Adrenals: Unremarkable. No mass. Kidneys and ureters: Simple 3.6 cm left upper pole renal cyst. No follow-up of this simple cyst is necessary. Simple 1 cm right upper pole renal cyst. No follow-up of this simple cyst is necessary. No hydronephrosis. Stomach and bowel: Hyperemia and wall thickening about the anus concerning for proctitis. Moderate amount of stool within the colon. No obstruction. PELVIS: Appendix: No findings to suggest acute appendicitis. Bladder: Carlos catheter within the nondistended urinary bladder. Reproductive: Enlarged prostate. ABDOMEN and PELVIS: Intraperitoneal space: Unremarkable. No free air. No significant fluid collection. Bones/joints: No acute fracture. No dislocation. Soft tissues: Unremarkable. Vasculature: Unremarkable. No abdominal aortic aneurysm. Lymph nodes: Unremarkable. No enlarged lymph nodes. IMPRESSION: Wall thickening and inflammatory changes about the anus concerning for proctitis Moderate amount of stool within the colon Bilateral renal cysts Electronically signed by: Jose Alberto Gonzales MD 01/04/25 23:54 PM
[2025-01-05] MEDS: POLYETHYLENE (MIRALAX) 17 GM PACK PO SCH ×3 (00:17→08:59)
[2025-01-05] MEDS: LEVOTHYROXINE SODIUM 50 MCG TABLET PO SCH (05:48)
[2025-01-05] MEDS: ACETAMINOPHEN 500 MG TAB PO PRN (07:17)
[2025-01-05 07:57] LABS: Anion Gap 8.0 (3-11); Blood Urea Nitrogen 16.0 mg/dl (6-23); Calcium 8.5 mg/dl (8.6-10.3); Carbon Dioxide 25.0 mmol/L (21-32); Chloride 106.0 mmol/L (98-107); Creatinine Clr Calc Pharmacy 52.5 ml/min; Glucose 123.0 mg/dl (70-99(Fasting)); Potassium 4.9 mmol/L (3.5-5.1); Sodium 139.0 mmol/L (136-145)
[2025-01-05] MEDS: APIXABAN 5 MG TABLET PO SCH (08:58)
[2025-01-05] MEDS: ROSUVASTATIN CALCIUM 20 MG TAB PO SCH (08:58)
[2025-01-05] MEDS: CLOPIDOGREL BISULFATE 75 MG TAB PO SCH (08:59)
[2025-01-05] MEDS: ISOSORBIDE MONO EXTENDED REL 30 MG TABCR PO SCH (09:12)
[2025-01-05] MEDS: AMIODARONE 200 MG TAB PO SCH (09:12)
--- NOTE | 2025-01-05 16:48 | Hospitalist Progress Note ---
Date of Service January 05, 2025 Assessment & Plan (1) Abdominal pain: (2) Fecal impaction: Plan 69-year-old male PMHx CAD s/p stent also with ICD, vitamin B12 deficiency, CARTER, ischemic cardiomyopathy, GERD, dyslipidemia, HTN, angiodysplasia of the intestine, prostate cancer, ED, heart failure, and A-fib on anticoagulation presenting for lower abdominal pain inability to urinate or defecate since 1400. Labs are overall unremarkable with exception of slightly elevated creatinine 1.47 glucose 141. #Intractable abdominal pain/Constipation, fecal impaction/urinary retention Abdominal pain started 1400 the day of arrival with associated inability to uri kami or defecate since 1400. No F/C. Slowly having some progress with BM, received enema in ED with some stool relieved, still with abdominal pain. Admission for intractable abdominal pain likely 2/2 constipation. - CBC WNL; CMP grossly WNL with exception creatinine 1.47, downtrend this am post IVF at 1.31 - UA without infection - KUB with moderate amount of stool in colon - CTAP with moderate amount of stool in colon, inflammation surrounding anus concerning for proctitis (no hx of Chron's/IBD), order for stool [employer]-->states he had some diarrhea last week, could be inflammatory - Regular diet - Carlos inserted in ED, no documented bladder scan/PVR, draining moderate amounts of yellow urine-->will leave Carlos in place until more stool evacuation as probable cause of urinary retention, denies LUTS prior to urinary retention last evening, CTAP 2020 with prostamegaly (on no alpha martha, will hold off for now) - Received 500 mL NSS in ED - Zofran prn N/V - Acetaminophen prn fever/pain; pt takes hydro-acet at home, will hold for now as he is constipated - pt agreeable, pain is manageable at present - Constipation regimen- received Magnesium citrate X 1, Milk and Molasses enema in ED, Miralax po TID #Renal insufficiency Very mild increase of Cr, likely related to symptoms of abdominal pain therefore decreased intake. Received 500 mL NSS in ED. H/o HFrEF. -Cr normalized post IVF bolus in ED -UA negative for infection -Hold spironolactone -Encourage oral intake rather than additional IVF at this time given poor cardiac history #PAF -Amiodarone, Eliquis, carvedilol, isosorbide mononitrate #CAD s/p stents/Ischemic cardiomyopathy s/p ICD/HFrEF- S/p anterior [place] (2006) s/p 2 LAD stents; Also with history of ischemic cardiomyopathy s/p [facility] AICD (2006) with generator change out (2013); h/o HFrEF, EF 20-25% 11/2024; Follows with cardiology; Dapagliflozin, spironolactone; Clopidogrel - Hold spironolactone at admission; continue remaining medications #Hypothyroidism -Levothyroxine #GERD -Omeprazole #Dyslipidemia/H/o CVA (11/2017)- -Rosuvastatin #Insomnia -Trazodone #Shoulder pain -Chronic, utilizes hydro-acet for - hold in setting of constipation #H/o prostate CA- Dx 02/2022, opted for active surveillance; last urology visit 03/24/2023. Dispo: Obs, med/sx, probable d/c tomorrow as he is responding to bowel evacuation regimen VTE Prophylaxis: On Eliquis - continue Admission and Anticipated Discharge Date Admission Date: January 04, 2025 Supervising Physician Co-Signing Physician Notes Attending Attestation: Chart reviewed, care plan d/w FREEDOM Jacobs. I agree with the coates components of her documentation. Delio Perales MD Subjective Reports he has had approximately 5 BMs since arrival in ED last evening. Stool is small amounts. Some are formed, some are loose. Carlos patent and draining moderate amounts of yellow urine. Review of Systems Review of Systems: All systems reviewed & are unremarkable except as noted in Subjective Physical Exam Physical Exam: GENERAL APPEARANCE: A&O. Sitting comfortably on stretcher. NAD. SKIN: Normal color without rashes or lesions. Normal turgor. HEENT: Head AT/NC. Buccal mucosa is moist and pink. NECK: No jugular venous distention. No thyroid enlargement. There is no lymphadenopathy. HEART: RRR without m/g/r LUNGS: Normal inspiratory effort. CTA without w/r/r ABDOMEN: No guarding or rigidity. Normoactive BS in all four quadrants. Abdomen soft and NT. MSK: No bony gross/deformities throughout. ROM intact. EXTREMITIES: No edema, No peripheral cyanosis. Neuro: CN 2-12 grossly intact. No focal neuro deficits PSYCHIATRIC: Normal affect. Eye contact is good. Speech is normal rate and content. Responses are appropriate. Results & Data Results & Data Vital Signs (Past 12 Hours) Vital Signs Temp Pulse Resp BP Pulse Ox O2 Del Method 01/05/25 15:26 36.8 C 71 20 107/69 95 Room Air 01/05/25 09:01 94/59 L 01/05/25 08:33 37.5 C 78 20 96/53 L 94 Room Air Laboratory Results Labs reviewed: CBC, BMP PG Care Time/CCT Total # of Minutes Spent Total Time Spent with Patient: Total time spent is greater than 50% in coordination of care (as documented) at patient's floor/unit and/or counseling patient: Coding Level of Care Code 34287 SUB INP/OBS CARE 2/35MIN Diagnoses Abdominal pain R10.9 Fecal impaction K56.41
[2025-01-05] MEDS: MAGNESIUM CITRATE 296 ML/BTL PO ONE (22:03)
[2025-01-06 07:31] VITALS: BP 120/73; PULSE 60; RESP 16; TEMP 97.9; O2SAT 95
--- NOTE | 2025-01-06 11:31 | Discharge Summary ---
Discharge Summary Date of Service January 06, 2025 Principal Dx & Hospital Course #1 = Principal Diagnosis (1) Abdominal pain: (2) Fecal impaction: Plan 69-year-old male PMHx CAD s/p stent also with ICD, vitamin B12 deficiency, CARTER, ischemic cardiomyopathy, GERD, dyslipidemia, HTN, angiodysplasia of the intestine, prostate cancer, ED, heart failure, and A-fib on anticoagulation presenting for lower abdominal pain inability to urinate or defecate since 1400. Labs are overall unremarkable with exception of slightly elevated creatinine 1.47 glucose 141. Patient received Molasses enema and advanced frequency Miralax dosing with favorable stool output since admission. He had Carlos maintained to keep bladder decompressed as he had urinary retention upon arrival to the ED. Suspect this was in the setting of overt constipation that was revealed on imaging. He denies LUTS outside of constipation presentation to ED on arrival. He will be discharged on Miralax one capful to take 2-3 times per day to promote full evacuation of bowels. Carlos discontinued with successful voiding trail of 50ml. He is to follow up with [facility] for f/u prostate biopsy as he has not been seen since 03/2023 and was scheduled to have f/u biopsy in setting of prostate cancer diagnosis with surveillance. Educated regarding use of prn narcotic at home and contribution to constipation with spare use and need for daily constipation regimen. #Intractable abdominal pain/Constipation, fecal impaction/urinary retention Abdominal pain started 1400 the day of arrival with associated inability to urinate or defecate since 1400. No F/C. Slowly having some progress with BM, received enema in ED with some stool relieved, still with abdominal pain. Admission for intractable abdominal pain likely 2/2 constipation. - CBC WNL; CMP grossly WNL with exception creatinine 1.47, downtrend this am post IVF at 1.31 - UA without infection - KUB with moderate amount of stool in colon - CTAP with moderate amount of stool in colon, inflammation surrounding anus concerning for proctitis (no hx of Chron's/IBD), order for stool Biofire-->states he had some diarrhea last week, could be inflammatory - Regular diet - Carlos inserted in ED, no documented bladder scan/PVR, draining moderate amounts of yellow urine-->will leave Carlos in place until more stool evacuation as probable cause of urinary retention, denies LUTS prior to urinary retention last evening, CTAP 2020 with prostamegaly - Received 500 mL NSS in ED - Zofran prn N/V - Acetaminophen prn fever/pain; pt takes hydro-acet at home, will hold for now as he is constipated - pt agreeable, pain is manageable at present - Constipation regimen- received Magnesium citrate X 1, Milk and Molasses enema in ED, Miralax po TID #Renal insufficiency Very mild increase of Cr, likely related to symptoms of abdominal pain therefore decreased intake. Received 500 mL NSS in ED. H/o HFrEF. -Cr normalized post IVF bolus in ED -UA negative for infection -Hold spironolactone -Encourage oral intake rather than additional IVF at this time given poor cardiac history #PAF -Amiodarone, Eliquis, carvedilol, isosorbide mononitrate #CAD s/p stents/Ischemic cardiomyopathy s/p ICD/HFrEF- S/p anterior WA (2006) s/p 2 LAD stents; Also with history of ischemic cardiomyopathy s/p [facility] AICD (2006) with generator change out (2013); h/o HFrEF, EF 20-25% 11/2024; Follows with cardiology; Dapagliflozin, spironolactone; Clopidogrel - Hold spironolactone at admission; continue remaining medications #Hypothyroidism -Levothyroxine #GERD -Omeprazole #Dyslipidemia/H/o CVA (11/2017)- -Rosuvastatin #Insomnia -Trazodone #Shoulder pain -Chronic, utilizes hydro-acet for - hold in setting of constipation #H/o prostate CA- Dx 02/2022, opted for active surveillance; last urology visit 03/24/2023 -patient to follow up with [facility] upon d/c as he has no been seen since 03/2023 and was to have f/u 6mth prostate biopsy for active surveillance, CM notified Dispo: discharge home, f/u with [facility], PCP VTE Prophylaxis: On Eliquis - continue Notes For Next Care Provider Daily Miralax use in setting of prn narcotic use, consider alpha martha in future if there is persistent LUTS and urinary retention Medication Changes From Visit Addition of daily Miralax Admission HPI Per Admitting Provider 69-year-old male PMHx CAD s/p stent also with ICD, vitamin B12 deficiency, CARTER, ischemic cardiomyopathy, GERD, dyslipidemia, HTN, angiodysplasia of the intestine, prostate cancer, ED, heart failure, and A-fib on anticoagulation presenting for lower abdominal pain inability to urinate or defecate since 1400. Reports that he had a gradual then sudden onset of abdominal pain starting at 1400 the day of arrival. The pain is located near his umbilicus, without radiation, and is described as dull in nature. At its worst, the pain was a 8.5/10 on the pain scale, currently a 4/10. Reports that his normal bowel habits include 2 BMs per day. Last BM the evening [employer]. Did have 1 episode of vomiting while in the ED, none aside from this and he is without nausea. No F/C, just cold at present. Had a difficult time with urinating today, was unable to once onset of abdominal pain. Admits that his bottom is sore from wiping, prefers to utilize oral medications moving forward. He has no additional symptoms to include CP, SOB, palpitations, URI symptoms, LUTS, weakness, numbness/tingling, syncope, or falls. He does take his hydro-acet as prescribed, but does not take his laxative with this. ED evaluation CBC without leukocytosis or leukopenia, stable H&H and platelets; CMP creatinine 1.47, glucose 141 otherwise unremarkable; lipase 31; UA without infection; KUB XR pending official read; CTAP pending official read.; Provided with 500 mL NSS, Zosyn 4.5 g IV, and Zofran 4 mg IV in ED. Discharge Exam GENERAL APPEARANCE: A&O. Lying comfortably in bed. NAD. SKIN: Normal color without rashes or lesions. Normal turgor. HEENT: Head AT/NC. Buccal mucosa is moist and pink. NECK: No jugular venous distention. No thyroid enlargement. There is no lymphadenopathy. HEART: RRR without m/g/r. LUNGS: Normal inspiratory effort. CTA without w/r/r. ABDOMEN: No guarding or rigidity. Normoactive BS in all four quadrants. Abdomen soft and NT. MSK: No bony gross/deformities throughout. ROM intact. EXTREMITIES: No edema, No peripheral cyanosis. Neuro: CN 2-12 grossly intact. No focal neuro deficits PSYCHIATRIC: Normal affect. Eye contact is good. Speech is normal rate and con tent. Responses are appropriate. Discharge Plan Discharge Items Patient Disposition: Home - Self-Care Reason For Visit: Abdominal Pain, Urinary Retention, Rectal Pain Discharge Diagnosis: Constipation/Urinary retention Condition on Discharge: Good Goals: Continue to have multiple bowel movements to completely empty stool from your GI tract Activity: Resume your previous activity Weightbearing: Full weightbearing Non-emergency contact: Primary Care Provider and Urologist Call non-emergency contact if: you have any medication questions, your symptoms worsen, your pain is not controlled, your pain is worsening and your pain is concerning for you Follow-up/Referrals: Clarice Dorsey MD [Primary Care Provider] - Aldo Michael MD [Physician] - (Please follow up as you have not been seen for prostate cancer surveillance since 03/24/23 and it was recommended at that time to have follow up prostate biopsy) Diet: Regular Addtl Attending Provider Instructions: Jason, You were admitted to the hospital for constipation. You have had several bowel movements with enema administration and frequent Miralax administration. You also had urinary retention probably related to your constipation and had a catheter placed that was removed. You were able to successfully empty your bladder prior to discharge. Please ensure you are following you with urology upon discharge for continued surveillance of your diagnosis of prostate cancer. The phone number to [facility] has been provided to you. Case management will also be contacted to touch base with the office to ensure an appointment is secure for you. Please continue to take Miralax one capful 2-3 three times per day until your bowels are completely emptied as you had a significant amount of stool present on the xray you had done when you came into the ER. You verbalized you have a container of this medication at home, therefore a prescription will not be supplied to you. Limit the amount of narcotic pain medication you take at home. Follow up with your family doctor within one week of discharge. Medications: Your medication list has been reviewed and reconciled upon discharge to ensure accuracy and continuity of care. An updated list of all your medications is included with your hospital discharge paperwork. Please review this list closely, and make note of any changes. Take your medications as instructed; do not skip a dose of your medicines. Make sure all of your doctors know every medicine you are taking (including qonv-nhr-btyehdn medicines, vitamins, and supplements). Call your primary care provider before taking any new medicines (including over- the-counter medicines, vitamins, and supplements), because some of these may interact with your current medications, or may make your symptoms worse. Tell your primary care provider if you cannot afford your medications. Activity: You can do normal everyday activities as your body allows. Take rest breaks if you feel tired. Do not overexert. Stop activity if you have pain, shortness of breath or feel dizzy. Follow-up appointments: Make an appointment with your primary care physician within one week of discharge. A copy of this summary will be sent to them. Every time you see your primary care physician, or any other doctor, bring your medication list, and a list of questions. CONTACT YOUR PRIMARY CARE PROVIDER if you experience any of the following: Shortness of breath or difficulty breathing Fevers or chills Feeling tired with normal activity or experiencing dizziness or fainting Difficulty following your treatment plan, or difficulty taking medications CALL 911 OR GO TO THE EMERGENCY DEPARTMENT if you experience any of the following: Severe abdominal pain or nausea/vomiting Severe chest pain, or chest pain that radiates (moves) to your jaw or arm Sudden, severe shortness of breath or difficulty breathing Thank you for allowing us to participate in your care. Pending Studies at Discharge: No Stand-Alone Forms: My [facility] [employer], Smoking Cessation Medications and DC Order Prescriptions: Continued ondansetron 4 mg tablet,disintegrating 8 mg PO Q8H PRN (Reason: nausea and vomiting) Qty: 40 0RF Eliquis 5 mg tablet 5 mg PO BID Qty: 180 3RF omeprazole 20 mg capsule,delayed release(DR/EC) 20 mg PO BID Qty: 180 3RF albuterol sulfate 90 mcg/actuation HFA aerosol inhaler 2 puff INHALATION 6XD PRN (Reason: Wheezing) Qty: 6.7 5RF amiodarone 200 mg tablet 200 mg PO DAILY Qty: 90 0RF levothyroxine 50 mcg tablet 50 mcg PO DAILY Qty: 60 0RF rosuvastatin 20 mg tablet 20 mg PO DAILY Qty: 90 3RF isosorbide mononitrate 30 mg tablet extended release 24 hr 30 mg PO DAILY Qty: 90 3RF diclofenac sodium 1 % gel 2 g topical QID PRN (Reason: pain, moderate) Qty: 100 2RF dapagliflozin propanediol [Farxiga] 10 mg tablet 10 mg PO DAILY Qty: 30 2RF spironolactone 25 mg tablet 25 mg PO DAILY Qty: 30 2RF sennosides [Senokot] 8.6 mg tablet 8.6 mg PO HS Qty: 30 0RF clopidogrel 75 mg Tablet 75 mg PO DAILY carvedilol 12.5 mg tablet 12.5 mg PO BID trazodone 50 mg tablet 50 mg PO HS PRN (Reason: Sleep) hydrocodone-acetaminophen 10-325 mg tablet 1 tab PO TID PRN (Reason: pain) nitroglycerin 0.4 mg tablet, sublingual 0.4 mg sublingual DIRECTED PRN (Reason: Chest Pain) Rx Instructions: PLACE 1 TABLET UNDER TONGUE EVERY 5 MINS, UP TO 3 DOSES NEEDED FOR CHEST PAIN Discharge Orders: Discharge Order (Routine); Ordered 01/06/25 Ordered By: Yudelka Charlton/Other Patient Handouts: Treating Constipation Admission Data Admit Date/Time: 01/04/25 22:26 Attending Provider: Danika Vega Admit Provider: Nery Henry Primary Care Provider: Clarice Dorsey Other Providers: Nery Henry Hospital Stay Data Consultations 01/04/25 21:57 ED Decision to Admit Stat Diagnostic Imagining Performed 01/04/25 20:58 CT abd pelvis IV con only Stat Pending Results Patient Have Any Pending Studies at Discharge: No Discharge Instructions Given to Patient (Per Discharging Provider) Jason You were admitted to the hospital for constipation. You have had several bowel movements with enema administration and frequent Miralax administration. You also had urinary retention probably related to your constipation and had a catheter placed that was removed. You were able to successfully empty your bladder prior to discharge. Please ensure you are following you with urology upon discharge for continued surveillance of your diagnosis of prostate cancer. The phone number to [facility] has been provided to you. Case management will also be contacted to touch base with the office to ensure an appointment is secure for you. Please continue to take Miralax one capful 2-3 three times per day until your bowels are completely emptied as you had a significant amount of stool present on the xray you had done when you came into the ER. You verbalized you have a container of this medication at home, therefore a prescription will not be supplied to you. Limit the amount of narcotic pain medication you take at home. Follow up with your family doctor within one week of discharge. Medications: Your medication list has been reviewed and reconciled upon discharge to ensure accuracy and continuity of care. An updated list of all your medications is included with your hospital discharge paperwork. Please review this list closely, and make note of any changes. Take your medications as instructed; do not skip a dose of your medicines. Make sure all of your doctors know every medicine you are taking (including ozll-wzf-twollla medicines, vitamins, and supplements). Call your primary care provider before taking any new medicines (including over- the-counter medicines, vitamins, and supplements), because some of these may interact with your current medications, or may make your symptoms worse. Tell your primary care provider if you cannot afford your medications. Activity: You can do normal everyday activities as your body allows. Take rest breaks if you feel tired. Do not overexert. Stop activity if you have pain, shortness of breath or feel dizzy. Follow-up appointments: Make an appointment with your primary care physician within one week of discharge. A copy of this summary will be sent to them. Every time you see your primary care physician, or any other doctor, bring your medication list, and a list of questions. CONTACT YOUR PRIMARY CARE PROVIDER if you experience any of the following: Shortness of breath or difficulty breathing Fevers or chills Feeling tired with normal activity or experiencing dizziness or fainting Difficulty following your treatment plan, or difficulty taking medications CALL 911 OR GO TO THE EMERGENCY DEPARTMENT if you experience any of the following: Severe abdominal pain or nausea/vomiting Severe chest pain, or chest pain that radiates (moves) to your jaw or arm Sudden, severe shortness of breath or difficulty breathing Thank you for allowing us to participate in your care. Total Time Total Time Spent Total Time Spent (In Minutes): 40 minutes Coding Level of Care Code 45917 INP/OBS DISCH >30 MIN Diagnoses Abdominal pain R10.9 Fecal impaction K56.41
== END 2025-01-06 11:56 | disposition home or self-care (01) ==
LOC: ED 19:24 → 3W 19:24 → SUATTDRO 22:26 → 3W 23:19